=== PATIENT | male | born 1930 | race African-American/Black ===

== ENCOUNTER 2017-12-14 14:41 | Inpatient (IN) | payer MEDICARE, OTHER ==
--- NOTE | 2017-12-14 15:45 | RADIOLOGY REPORT (SQ) ---
EXAM DESCRIPTION: HIP RIGHT AP/LATERAL COMPLETED DATE/TIME: 12/14/2017 3:29 pm REASON FOR STUDY: fall COMPARISON: None. NUMBER OF VIEWS: 3 images including AP pelvis and frog lateral right hip. LIMITATIONS: None. FINDINGS: Osteopenic. There is a right femoral neck fracture, subcapital -mid. Mild impaction and anterior superior slight displacement. Remaining osseous pelvis without evidence of fracture. OTHER: No other significant finding. IMPRESSION: Right femoral neck fracture with slight displacement. TECHNICAL DOCUMENTATION: JOB ID: [id number]
[2017-12-14] MEDS ORDERED: ACETAMINOPHEN 325 MG TABLET PO ONE (15:47)
--- NOTE | 2017-12-14 16:28 | RADIOLOGY REPORT (SQ) ---
EXAM DESCRIPTION: CHEST SINGLE VIEW COMPLETED DATE/TIME: 12/14/2017 4:20 pm REASON FOR STUDY: pre op COMPARISON: None. EXAM PARAMETERS: NUMBER OF VIEWS: One view. TECHNIQUE: Single frontal radiographic view of the chest acquired. RADIATION DOSE: NA LIMITATIONS: Poor inspiration. FINDINGS: LUNGS AND PLEURA: No opacities, masses or pneumothorax. No pleural effusion. MEDIASTINUM AND HILAR STRUCTURES: No masses. Contour normal. HEART AND VASCULAR STRUCTURES: Heart normal in size. Normal vasculature. BONES: No acute findings. HARDWARE: None in the chest. OTHER: No other significant finding. IMPRESSION: NO ACUTE RADIOGRAPHIC FINDING IN THE CHEST. TECHNICAL DOCUMENTATION: JOB ID: [id number] [employer]- All Rights Reserved
[2017-12-14 16:45] LABS: ABSOLUTE EOSINOPHILS # (AUTO) 0.1 10^3/uL (0.0-0.6); ABSOLUTE LYMPHOCYTES (AUTO) 1.2 10^3/uL (0.5-4.7); ABSOLUTE MONOCYTES (AUTO) 0.6 10^3/uL (0.1-1.4); ABSOLUTE NEUT (AUTO) 7.3 10^3/uL (1.7-8.2); BASOPHILS % (AUTO) 0.3 % (0-2); EOSINOPHILS % (AUTO) 1.3 % (0-6); HEMATOCRIT 35.4 % (37.9-51.0); LYMPHOCYTES % (AUTO) 13.3 % (13-45); MEAN CORPUSCULAR HEMOGLOBIN 31.7 pg (27.0-33.4); MEAN CORPUSCULAR HGB CONC 33.8 g/dL (32.0-36.0); MEAN CORPUSCULAR VOLUME 94 fl (80-97); MONOCYTES % (AUTO) 6.2 % (3-13); PLATELET COUNT 193 10^3/uL (150-450); RED BLOOD COUNT 3.78 10^6/uL (4.35-5.55); RED CELL DISTRIBUTION WIDTH 14.9 % (11.5-14.0); SEGMENTED NEUTROPHILS % (AUTO) 78.9 % (42-78); TOTAL CELLS COUNTED % (AUTO) 100 %; WHITE BLOOD COUNT 9.3 10^3/uL (4.0-10.5)
[2017-12-14] MEDS ORDERED: FENTANYL CITRATE INJ/PF 100 MCG/2 ML AMPUL IV ONE (16:45)
--- NOTE | 2017-12-14 16:46 | ER Document Report ---
ED Hip Pain/Injury - General Chief Complaint: Hip Pain Stated Complaint: FALL/LEG PAIN Time Seen by Provider: 12/14/17 15:53 Mode of Arrival: Wheelchair Information source: Patient Notes: Patient is an 87-year-old male who presents to the ER today after a fall at the grocery store for right hip pain. Patient states that his right hip took "most of the blunt of the fall." Patient states that he cannot bear weight on the right leg at this time. He also has a skin tear to his right elbow. He denies hitting her head or loss of consciousness. TRAVEL OUTSIDE OF THE [place] IN LAST 30 DAYS: No - Related Data Allergies/Adverse Reactions: No Known Allergies Allergy (Unverified 12/14/17 14:44) Past Medical History - General Information source: Patient - Social History Smoking Status: Never Smoker Family History: Reviewed & Not Pertinent Patient has suicidal ideation: No Patient has homicidal ideation: No - Past Medical History Cardiac Medical History: Reports: Hx Hypercholesterolemia, Hx Hypertension Endocrine Medical History: Reports: Hx Diabetes Mellitus Type 2 Renal/ Medical History: Denies: Hx Peritoneal Dialysis Past Surgical History: Reports: Hx Bowel Surgery - colostomy Review of Systems - Review of Systems Constitutional: No symptoms reported EENT: No symptoms reported Cardiovascular: No symptoms reported Respiratory: No symptoms reported Gastrointestinal: No symptoms reported Genitourinary: No symptoms reported Male Genitourinary: No symptoms reported Musculoskeletal: See HPI Skin: See HPI Hematologic/Lymphatic: No symptoms reported Neurological/Psychological: No symptoms reported Physical Exam - Vital signs Vitals: Temp Pulse BP Pulse Ox 97.9 F 69 177/68 H 96 12/14/17 14:49 12/14/17 14:49 12/14/17 14:49 12/14/17 14:49 - Notes Notes: PHYSICAL EXAMINATION: GENERAL: Well-appearing and in no acute distress. HEAD: Atraumatic, normocephalic. EYES: Pupils equal round and reactive to light, extraocular movements intact, sclera anicteric, conjunctiva are normal. NECK: Normal range of motion, supple without lymphadenopathy LUNGS: CTAB and equal. No wheezes rales or rhonchi. HEART: Regular rate and rhythm without murmurs ABDOMEN: Soft, no tenderness. No guarding, no rebound BACK: no vertebral tenderness, normal ROM GI/: no CVA tenderness EXTREMITIES: right hip tenderness, right leg externally rotated and shortened, no pitting edema. No cyanosis. NEUROLOGICAL: Cranial nerves grossly intact. Normal sensory/motor exams. PSYCH: Normal mood, normal affect. SKIN: Warm, Dry, normal turgor, no rashes or lesions noted Course - Re-evaluation Re-evalutation: 12/14/17 18:47 Patient has fracture, minimally displaced at the right femoral neck. Dr. Wang , orthopedic surgeon agrees to see him if admitted by his primary care provider so that Dr. Mishra, his primary can manage his medical issues. Dr. Mishra agrees. Patient admitted at this time. Fentanyl for pain is relieved patient' s pain. - Vital Signs Vital signs: Temp Pulse Resp BP Pulse Ox 97.9 F 69 177/68 H 96 12/14/17 14:49 12/14/17 14:49 12/14/17 14:49 12/14/17 14:49 - Laboratory Result Diagrams: 12/14/17 16:25 12/14/17 16:25 Laboratory results interpreted by me: 12/14/17 12/14/17 16:25 16:25 RBC 3.78 L Hgb 12.0 L Hct 35.4 L RDW 14.9 H Seg Neutrophils % 78.9 H Glucose 163 H Discharge - Discharge Clinical Impression: Closed right hip fracture Qualifiers: Encounter type: initial encounter Qualified Code(s): S72.001A - Fracture of unspecified part of neck of right femur, initial encounter for closed fracture Condition: Stable Disposition: ADMITTED INPATIENT Admitting Provider: Tad Unit Admitted: Medical Floor
[2017-12-14 17:09] LABS: ALANINE AMINOTRANSFERASE 24 U/L (21-72); ALBUMIN 4.3 g/dL (3.5-5.0); ALKALINE PHOSPHATASE 48 U/L (38-126); ANION GAP 11 (5-19); ASPARTATE AMINO TRANSFERASE 24 U/L (17-59); BILIRUBIN,DIRECT 0.4 mg/dL (0.0-0.4); BILIRUBIN,TOTAL 0.4 mg/dL (0.2-1.3); BLOOD UREA NITROGEN 16 mg/dL (7-20); CALCIUM 9.1 mg/dL (8.4-10.2); CARBON DIOXIDE 26 mmol/L (22-30); CHLORIDE 104 mmol/L (98-107); GLUCOSE 163 mg/dL (75-110); POTASSIUM 3.6 mmol/L (3.6-5.0); SODIUM 140.6 mmol/L (137-145); TOTAL PROTEIN 7.3 g/dL (6.3-8.2)
--- NOTE | 2017-12-14 18:23 | EKG REPORT ---
SEVERITY:- NORMAL ECG - SINUS RHYTHM : Confirmed by: Milton Martinez MD 14-Dec-2017 18:22:36
--- NOTE | 2017-12-14 19:53 | PDOC H&P ---
History of Present Illness Admission Date/PCP: 12/14/17 17:11 IRENE GUERRERO Patient complains of: Fall and right hip pain History of Present Illness: JENNIFER BAY is a 87 year old male known to my practice who presented to the ED subsequent to fall incident at local grocery store. Patient reported that he was returning a shopping cart and upon turning around lost his balance and fell to the floor with his right hip area bearing most of his impact. He subsequently developed hip joint region pain and difficulty with walking. He reported sustaining skin tear injury to his right elbow region. Patient denied any preceding chest pain, palpitation, headache, dizziness or vertigo. He denied any head injury or loss of consciousness. His morbidities include Diabetes mellitus type 2, Hypertension, Hyperlipidemia, persistent insomnia, intermittent positional vertigo, and osteoarthritis. Patient has long standing past history of colon cancer s/p colectomy and left sided diverting colostomy. Past Medical History Cardiac Medical History: Reports: Hyperlipidema, Hypertension Endocrine Medical History: Reports: Diabetes Mellitus Type 2 Social History Smoking Status: Never Smoker - Advance Directive Resuscitation Status: Full Code Family History Family History: Reviewed & Not Pertinent Parental Family History Reviewed: Yes Children Family History Reviewed: Yes Sibling(s) Family History Reviewed.: Yes Medication/Allergy Home Medications: Meclizine HCl [Antivert 25 mg Tablet] 25 mg PO Q8HP PRN 12/14/17 Metformin HCl [Glucophage] 500 mg PO DAILY 12/14/17 Nitroglycerin [Nitro-Dur 10 mg (0.4MG/Hr) Transdermal Patch] 1 patch TOP DAILY 12/14/17 Telmisartan [Micardis 40 mg Tablet] 40 mg PO DAILY 12/14/17 Zolpidem Tartrate [Ambien] 10 mg PO QHS 12/14/17 Allergies/Adverse Reactions: No Known Allergies Allergy (Unverified 12/14/17 14:44) Review of Systems Constitutional: ABSENT: chills, fever(s), headache(s), weight gain, weight loss Eyes: ABSENT: visual disturbances Ears: ABSENT: hearing changes Nose, Mouth, and Throat: ABSENT: as per HPI, headache(s), mouth pain, sore throat, vertigo, other Cardiovascular: ABSENT: chest pain, dyspnea on exertion, edema, orthropnea, palpitations Gastrointestinal: PRESENT: other - functioning colostomy. ABSENT: abdominal pain, constipation, diarrhea, hematemesis, hematochezia, nausea, vomiting Genitourinary: ABSENT: dysuria, hematuria Musculoskeletal: PRESENT: deformity - related to multiple joints involvement with arthritis, other - right hip joint pain Integumentary: PRESENT: wounds - right elbow region skin tear wound from recent fall injury. ABSENT: as per HPI, diaphoresis, erythema, lesions, pruritus, rash , other Neurological: ABSENT: abnormal gait, abnormal speech, confusion, dizziness, focal weakness, syncope Psychiatric: ABSENT: anxiety, depression, homidical ideation, suicidal ideation Hematologic/Lymphatic: ABSENT: easy bleeding, easy bruising, lymphadenopathy Allergic/Immunologic: ABSENT: seasonal rhinorrhea Physical Exam Vital Signs: Temp Pulse Resp BP Pulse Ox 97.9 F 69 177/68 H 96 12/14/17 14:49 12/14/17 14:49 12/14/17 14:49 12/14/17 14:49 General appearance: PRESENT: no acute distress, well-developed, well-nourished Head exam: PRESENT: atraumatic, normocephalic Eye exam: PRESENT: conjunctiva pink, EOMI, PERRLA. ABSENT: scleral icterus Ear exam: PRESENT: normal external ear exam Mouth exam: PRESENT: moist, tongue midline Neck exam: PRESENT: full ROM. ABSENT: carotid bruit, JVD, lymphadenopathy, thyromegaly Respiratory exam: PRESENT: clear to auscultation vishal Cardiovascular exam: PRESENT: RRR. ABSENT: diastolic murmur, rubs, systolic murmur Pulses: PRESENT: normal dorsalis pedis pul, +2 pedal pulses bilateral Vascular exam: PRESENT: normal capillary refill. ABSENT: pallor GI/Abdominal exam: PRESENT: normal bowel sounds, soft. ABSENT: distended, guarding, mass, organolmegaly, rebound, tenderness Rectal exam: PRESENT: deferred Extremities exam: PRESENT: tenderness - right hip joint region with movement. ABSENT: pedal edema Musculoskeletal exam: PRESENT: deformity - related to multiple joints involvement with arthritis and externally rotated right hipo joint due to recent fall and fractured neck of right femur., tenderness - right hip region with movement Neurological exam: PRESENT: alert, awake, oriented to person, oriented to place , oriented to time, oriented to situation, CN II-XII grossly intact. ABSENT: motor sensory deficit Psychiatric exam: PRESENT: appropriate affect, normal mood. ABSENT: homicidal ideation, suicidal ideation Skin exam: PRESENT: dry, intact, skin tears - right elbow region, warm, other - left LQU region functioning colostomy. ABSENT: cyanosis, rash Results Laboratory Results: I reviewed his lab results on [employer] and form significant part of my medical decision making. Impressions: Hip/Pelvis X-Ray 12/14/17 14:44 IMPRESSION: Right femoral neck fracture with slight displacement. Chest X-Ray 12/14/17 15:54 IMPRESSION: NO ACUTE RADIOGRAPHIC FINDING IN THE CHEST. Assessment & Plan - Diagnosis (1) Fall in elderly patient Is this a current diagnosis for this admission?: Yes Plan: See admitting attending physician orders (2) Fracture of neck of right femur Qualifiers: Encounter type: initial encounter Fracture type: closed Qualified Code(s) : S72.001A - Fracture of unspecified part of neck of right femur, initial encounter for closed fracture Is this a current diagnosis for this admission?: Yes Plan: See admitting attending physician orders (3) Diabetes mellitus type 2 in nonobese Is this a current diagnosis for this admission?: Yes Plan: See admitting attending physician orders (4) HTN (hypertension) Qualifiers: Hypertension type: essential hypertension Qualified Code(s): I10 - Essential (primary) hypertension Is this a current diagnosis for this admission?: Yes Plan: See admitting attending physician orders (5) HLD (hyperlipidemia) Qualifiers: Hyperlipidemia type: pure hypercholesterolemia Qualified Code(s): E78.00 - Pure hypercholesterolemia, unspecified; E78.0 - Pure hypercholesterolemia Is this a current diagnosis for this admission?: Yes Plan: See admitting attending physician orders (6) Osteoarthritis involving multiple joints on both sides of body Is this a current diagnosis for this admission?: Yes Plan: See admitting attending physician orders (7) Colostomy care Is this a current diagnosis for this admission?: Yes Plan: See admitting attending physician orders - Time Time Spent: 50 to 70 Minutes Medications reviewed and adjusted accordingly: Yes Anticipated discharge: SNF - for short term rehabilitation Within: Other - Inpatient Certification Based on my medical assessment, after consideration of the patient's comorbidities, presenting symptoms, or acuity I expect that the services needed warrant INPATIENT care.: Yes I certify that my determination is in accordance with my understanding of Medicare's requirements for reasonable and necessary INPATIENT services [42 CFR 412.3e].: Yes Medical Necessity: Need Close Monitoring Due to Risk of Patient Decompensation, Need For IV Fluids, Need for Pain Control, Need for Surgery, Risk of Complication if Not Cared For in Hospital Post Hospital Care: D/C or Transfer Summary - Plan Summary Plan Summary: See admitting attending physician orders
[2017-12-14] MEDS ORDERED: DEXTROSE 50%-WATER 25 GM/50 ML DISP.SYRIN IV PRN ×2 (19:55)
[2017-12-14] MEDS ORDERED: DEXTROSE 40% GEL 15 GM TUBE PO PRN ×2 (19:55)
[2017-12-14] MEDS ORDERED: GLUCAGON,HUMAN RECOMB 1 MG INJ SUBCUT PRN (19:55)
[2017-12-14] MEDS ORDERED: NORMAL SALINE 1000 ML 1,000 ML IV PRN (19:56)
[2017-12-14] MEDS ORDERED: INSULIN LISPRO 100 UNIT/ML 3 ML VIAL SUBCUT PRN (19:56)
[2017-12-14] MEDS ORDERED: MORPHINE SULFATE 10 MG/ML INJ IV PRN (20:02)
[2017-12-14 21:11] LABS: CREATINE KINASE MB 2.65 ng/mL (<4.55)
[2017-12-14 21:18] LABS: TROPONIN I < 0.012 ng/mL
[2017-12-14] MEDS: HYDROMORPHONE HCL INJ/PF 2 MG/ML AMPULE IV PRN (21:28)
[2017-12-15] MEDS: LANSOPRAZOLE 30 MG TAB.RAP.DR PO SCH (05:01)
[2017-12-15 06:08] LABS: ABSOLUTE EOSINOPHILS # (AUTO) 0.2 10^3/uL (0.0-0.6); ABSOLUTE LYMPHOCYTES (AUTO) 0.8 10^3/uL (0.5-4.7); ABSOLUTE MONOCYTES (AUTO) 0.5 10^3/uL (0.1-1.4); ABSOLUTE NEUT (AUTO) 6.9 10^3/uL (1.7-8.2); BASOPHILS % (AUTO) 0.3 % (0-2); EOSINOPHILS % (AUTO) 2.6 % (0-6); HEMATOCRIT 31.8 % (37.9-51.0); HEMOGLOBIN 10.8 g/dL (13.5-17.0); LYMPHOCYTES % (AUTO) 9.8 % (13-45); MEAN CORPUSCULAR HEMOGLOBIN 31.8 pg (27.0-33.4); MEAN CORPUSCULAR HGB CONC 34.1 g/dL (32.0-36.0); MEAN CORPUSCULAR VOLUME 93 fl (80-97); MONOCYTES % (AUTO) 5.6 % (3-13); PLATELET COUNT 151 10^3/uL (150-450); RED BLOOD COUNT 3.41 10^6/uL (4.35-5.55); SEGMENTED NEUTROPHILS % (AUTO) 81.7 % (42-78); TOTAL CELLS COUNTED % (AUTO) 100 %; WHITE BLOOD COUNT 8.4 10^3/uL (4.0-10.5)
[2017-12-15 06:27] LABS: INTERNATIONAL RATION (INR) 0.97; PROTHROMBIN TIME 13.6 SEC (11.4-15.4)
[2017-12-15 06:28] LABS: ANION GAP 12 (5-19); BLOOD UREA NITROGEN 15 mg/dL (7-20); CALCIUM 8.6 mg/dL (8.4-10.2); CARBON DIOXIDE 22 mmol/L (22-30); CHLORIDE 108 mmol/L (98-107); GLUCOSE 109 mg/dL (75-110); PARTIAL THROMBOPLASTIN TIME 35.1 SEC (23.5-35.8); POTASSIUM 3.8 mmol/L (3.6-5.0); SODIUM 141.8 mmol/L (137-145)
[2017-12-15] MEDS: HYDROMORPHONE HCL INJ/PF 2 MG/ML AMPULE IV PRN (06:46)
--- NOTE | 2017-12-15 07:13 | PDOC CONSULTATION ---
Consultation Consult Date: 12/15/17 Consult reason:: 87-year-old black male with a displaced right femoral neck fracture History of Present Illness Admission Date/PCP: 12/14/17 17:11 IRENE GUERRERO History of Present Illness: Patient is an 87-year-old black male with a noncontributory past medical history and who is a community ambulator. He fell in a grocery store yesterday and sustained a right hip injury. He is brought to the emergency room were displaced right femoral neck fracture is identified. The patient is admitted to his primary care physician and orthopedics is consulted for fracture management. Past Medical History Cardiac Medical History: Reports: Hyperlipidema, Hypertension Endocrine Medical History: Reports: Diabetes Mellitus Type 2 Past Surgical History Past Surgical History: Reports: None Social History Information Source: Patient, [facility] Records Smoking Status: Never Smoker - Advance Directive Resuscitation Status: Full Code Family History Family History: Reviewed & Not Pertinent Parental Family History Reviewed: No Children Family History Reviewed: No Sibling(s) Family History Reviewed.: No Medication/Allergy Home Medications: Meclizine HCl [Antivert 25 mg Tablet] 25 mg PO Q8HP PRN 12/14/17 Metformin HCl [Glucophage] 500 mg PO DAILY 12/14/17 Nitroglycerin [Nitro-Dur 10 mg (0.4MG/Hr) Transdermal Patch] 1 patch TOP DAILY 12/14/17 Telmisartan [Micardis 40 mg Tablet] 40 mg PO DAILY 12/14/17 Zolpidem Tartrate [Ambien] 10 mg PO QHS 12/14/17 Allergies/Adverse Reactions: No Known Allergies Allergy (Unverified 12/14/17 14:44) Review of Systems All systems: as per H Physical Exam Vital Signs: Temp Pulse Resp BP Pulse Ox 37.1 C 78 16 151/80 H 95 12/14/17 23:26 12/14/17 23:26 12/14/17 23:26 12/14/17 23:26 12/14/17 23:26 Intake & Output 12/14/17 12/15/17 12/16/17 06:59 06:59 06:59 Intake Total 0 Output Total 650 Balance -650 Physical Exam: Elderly black male lying in a hospital bed who is alert and oriented. Patient appears considerably younger than his chronologic age. General appearance: PRESENT: no acute distress Head exam: PRESENT: normocephalic Respiratory exam: PRESENT: unlabored Cardiovascular exam: PRESENT: RRR Pulses: PRESENT: +1 pedal pulses bilateral Vascular exam: PRESENT: normal capillary refill GI/Abdominal exam: PRESENT: soft Rectal exam: PRESENT: deferred Extremities exam: PRESENT: other - Right lower extremity shortened and externally rotated. Passive range of motion is painful. Distal neurovascular examination is intact. Neurological exam: PRESENT: alert, awake, oriented to person, oriented to place , oriented to time, oriented to situation. ABSENT: motor sensory deficit Psychiatric exam: PRESENT: appropriate affect, normal mood. ABSENT: homicidal ideation, suicidal ideation Skin exam: PRESENT: dry, intact, warm. ABSENT: cyanosis, rash Results Laboratory Results: 12/15/17 05:13 12/15/17 05:13 12/15/17 12/15/17 05:13 05:13 WBC 8.4 RBC 3.41 L Hgb 10.8 L Hct 31.8 L MCV 93 MCH 31.8 MCHC 34.1 RDW 15.0 H Plt Count 151 Seg Neutrophils % 81.7 H Lymphocytes % 9.8 L Monocytes % 5.6 Eosinophils % 2.6 Basophils % 0.3 Absolute Neutrophils 6.9 Absolute Lymphocytes 0.8 Absolute Monocytes 0.5 Absolute Eosinophils 0.2 Absolute Basophils 0.0 Sodium 141.8 Potassium 3.8 Chloride 108 H Carbon Dioxide 22 Anion Gap 12 BUN 15 Creatinine 0.78 Est GFR ( Amer) > 60 Est GFR (Non-Af Amer) > 60 Glucose 109 Calcium 8.6 12/14/17 12/14/17 20:13 20:13 Creatine Kinase 217 H CK-MB (CK-2) 2.65 Troponin I < 0.012 Impressions: Hip/Pelvis X-Ray 12/14/17 14:44 IMPRESSION: Right femoral neck fracture with slight displacement. Chest X-Ray 12/14/17 15:54 IMPRESSION: NO ACUTE RADIOGRAPHIC FINDING IN THE CHEST. Status: Imported from PACS Assessment & Plan - Diagnosis (1) Fracture of neck of right femur Qualifiers: Encounter type: initial encounter Fracture type: closed Qualified Code(s) : S72.001A - Fracture of unspecified part of neck of right femur, initial encounter for closed fracture Is this a current diagnosis for this admission?: Yes Plan: 87-year-old black male with a displaced right femoral neck fracture. Tentative plan will be to proceed with a right proximal femoral hemiarthroplasty under choice anesthesia pending OR availability. - Time Time Spent: 50 to 70 Minutes Anticipated discharge: SNF Within: Other
[2017-12-15] MEDS ORDERED: TRANEXAMIC ACID INJ/PF 1,000 MG/10 ML SDV IV PRN (07:30)
[2017-12-15] MEDS ORDERED: VANCOMYCIN HCL 1,000 MG in DEXTROSE 5%-WATER 250 ML IV PRN (07:30)
[2017-12-15] MEDS ORDERED: LIDOCAINE 2% INJ-PF (20 MG/ML) 2 ML AMPUL ONE (08:12)
[2017-12-15] MEDS ORDERED: THROMBIN (BOVINE) 5000 UNIT EPITAXIS KIT ONE (09:06)
[2017-12-15] MEDS ORDERED: THROMBIN (BOVINE) TOPICAL 20000 UNIT VIAL ONE (09:06)
[2017-12-15] MEDS ORDERED: BUPIVACAINE INJ/PF LIPOSOME/PF 266 MG/20 ML SDV ONE ×2 (09:07→11:06)
[2017-12-15] MEDS: RINGERS SOLUTION,LACTATED 1,000 ML IV PRN ×2 (09:20→18:17)
[2017-12-15] MEDS ORDERED: FENTANYL CITRATE INJ/PF 100 MCG/2 ML AMPUL ONE (09:35)
[2017-12-15] MEDS ORDERED: MIDAZOLAM 2 MG/2 ML INJ ONE (09:35)
[2017-12-15] MEDS ORDERED: KETAMINE HCL INJ 500 MG/10 ML VIAL ONE (09:35)
[2017-12-15] MEDS ORDERED: ACETAMINOPHEN 100 ML IV ONE (09:36)
[2017-12-15] MEDS ORDERED: PROPOFOL INJ 200 MG/20 ML VIAL IV ONE (09:36)
[2017-12-15] MEDS ORDERED: BUPIVACAINE HCL/DEX-WATER/PF 15 MG/2 ML AMPULE ONE (09:44)
[2017-12-15] MEDS ORDERED: (PENDING PHARMACY ID) (Telmisartan [Micardis 40 Mg Tablet] 40 MG) PO SCH (10:00)
[2017-12-15] MEDS ORDERED: TRANEXAMIC ACID INJ/PF 1,000 MG/10 ML SDV IV ONE ×2 (11:27→15:00)
[2017-12-15] MEDS ORDERED: DIPHENHYDRAMINE HCL 50 MG/ML VIAL IV PRN (12:28)
[2017-12-15] MEDS ORDERED: PROMETHAZINE HCL INJ 25 MG/1 ML VIAL IV PRN (12:28)
[2017-12-15] MEDS ORDERED: FENTANYL CITRATE INJ/PF 100 MCG/2 ML AMPUL IV PRN ×3 (12:28)
[2017-12-15] MEDS ORDERED: MORPHINE SULFATE 10 MG/ML INJ IV PRN (12:28)
[2017-12-15] MEDS ORDERED: ONDANSETRON HCL INJ/PF 4 MG/2 ML SDV IV PRN (12:28)
--- NOTE | 2017-12-15 12:57 | Operative Report ---
Operative Report DATE OF SURGERY: 12/15/17 PREOPERATIVE DIAGNOSIS: Right femoral neck fracture OPERATION: Right proximal femoral hemiarthroplasty SURGEON: ZOHRA SINGH ANESTHESIA: Spinal TISSUE REMOVED OR ALTERED: Femoral head to pathology ESTIMATED BLOOD LOSS: 100 PROCEDURE: Implants used: Peter Accolade 2 stem size 7 -4 neck extension 50 mm unipolar head With the patient in a left lateral decubitus position the right lower extremity hindquarter prepped and draped in a sterile fashion. A curvilinear incision made over the greater trochanter a posterior approach the hip was taken. The femur was retracted anteriorly and underlying femoral neck and head are retrieved using a corkscrew. The femoral head was measured and noted to be 50 millimeters. Attention is now turned to the femur. Access is gained to the femoral canal using a box osteotome to the piriformis fossa. The femur is then prepared using a series of tapered broaches until a number 7 broach is seated. A trial reduction was now performed using a 50 head and -4 neck. Leg length was restored and there is excellent anterior posterior stability. A decision was made to proceed with this construct. All trial implants were removed. The final number 7 femoral stem is impacted into the canal. The -4 neck is impacted onto the trunnion. Final unipolar head 50 millimeters is impacted onto the neck. The hip was reduced. The wound is copiously irrigated with pulsed lavage. A subsequent closed in layers using Vicryl and grant. A sterile dressing is applied. The patient was returned to the recovery room in satisfactory condition.
[2017-12-15] MEDS: LOSARTAN POTASSIUM 50 MG TABLET PO SCH (13:41)
[2017-12-15] MEDS: NITROGLYCERIN 10 MG (0.4 MG/HR) PATCH.TD24 TOP SCH (13:41)
[2017-12-15] MEDS ORDERED: HYDROMORPHONE HCL INJ/PF 2 MG/ML AMPULE IV PRN (14:03)
--- NOTE | 2017-12-15 18:08 | PDOC PROGRESS REPORT ---
Subjective Progress Note for:: 12/15/17 Subjective:: Patient is s/p right total hip arthroplasty following fall with subsequent femoral neck fracture. he reported fairly controlled pain on current pain management regimen. No chest pain or difficulty with breathing. No nausea, vomiting, or abdominal pain. No fever or chills. Reason For Visit: FALL AT [employer] STORE FROM STANDING POSITION Physical Exam Vital Signs: Temp Pulse Resp BP Pulse Ox 98.5 F 76 12 147/69 H 100 12/15/17 16:27 12/15/17 16:27 12/15/17 16:27 12/15/17 16:27 12/15/17 16:27 Intake & Output 12/14/17 12/15/17 12/16/17 06:59 06:59 06:59 Intake Total 0 6481 Output Total 650 1980 Balance -650 4501 General appearance: PRESENT: no acute distress Head exam: PRESENT: atraumatic, normocephalic Eye exam: PRESENT: conjunctiva pink, EOMI, PERRLA. ABSENT: scleral icterus Mouth exam: PRESENT: moist Respiratory exam: PRESENT: clear to auscultation vishal Cardiovascular exam: PRESENT: RRR. ABSENT: diastolic murmur, rubs, systolic murmur Vascular exam: PRESENT: normal capillary refill. ABSENT: pallor GI/Abdominal exam: PRESENT: normal bowel sounds, soft. ABSENT: distended, guarding, mass, organolmegaly, rebound, tenderness Extremities exam: ABSENT: pedal edema Musculoskeletal exam: ABSENT: ambulatory Neurological exam: PRESENT: alert, awake, oriented to person, oriented to place , oriented to time, oriented to situation, CN II-XII grossly intact. ABSENT: motor sensory deficit Psychiatric exam: PRESENT: appropriate affect, normal mood. ABSENT: homicidal ideation, suicidal ideation Skin exam: PRESENT: dry, warm, other - right thigh surgical wound site dressing satisfactory.. ABSENT: cyanosis, rash Results Laboratory Results: 12/15/17 05:13 12/15/17 05:13 12/15/17 12/15/17 05:13 05:13 WBC 8.4 RBC 3.41 L Hgb 10.8 L Hct 31.8 L MCV 93 MCH 31.8 MCHC 34.1 RDW 15.0 H Plt Count 151 Seg Neutrophils % 81.7 H Lymphocytes % 9.8 L Monocytes % 5.6 Eosinophils % 2.6 Basophils % 0.3 Absolute Neutrophils 6.9 Absolute Lymphocytes 0.8 Absolute Monocytes 0.5 Absolute Eosinophils 0.2 Absolute Basophils 0.0 Sodium 141.8 Potassium 3.8 Chloride 108 H Carbon Dioxide 22 Anion Gap 12 BUN 15 Creatinine 0.78 Est GFR ( Amer) > 60 Est GFR (Non-Af Amer) > 60 Glucose 109 Calcium 8.6 12/14/17 12/14/17 20:13 20:13 Creatine Kinase 217 H CK-MB (CK-2) 2.65 Troponin I < 0.012 Impressions: Hip/Pelvis X-Ray 12/14/17 14:44 IMPRESSION: Right femoral neck fracture with slight displacement. Chest X-Ray 12/14/17 15:54 IMPRESSION: NO ACUTE RADIOGRAPHIC FINDING IN THE CHEST. 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 Is this a current diagnosis for this admission?: Yes (4) HTN (hypertension) Qualifiers: Hypertension type: essential hypertension Qualified Code(s): I10 - Essential (primary) hypertension Is this a current diagnosis for this admission?: Yes (5) HLD (hyperlipidemia) Qualifiers: Hyperlipidemia type: pure hypercholesterolemia Qualified Code(s): E78.00 - Pure hypercholesterolemia, unspecified; E78.0 - Pure hypercholesterolemia Is this a current diagnosis for this admission?: Yes (6) Osteoarthritis involving multiple joints on both sides of body Is this a current diagnosis for this admission?: Yes (7) Colostomy care Is this a current diagnosis for this admission?: Yes - Time Time Spent with patient: 25-34 minutes Medications reviewed and adjusted accordingly: Yes Anticipated discharge: SNF - [facility] short term rehabilitation. Within: within 48 hours - Inpatient Certification Based on my medical assessment, after consideration of the patient's comorbidities, presenting symptoms, or acuity I expect that the services needed warrant INPATIENT care.: Yes I certify that my determination is in accordance with my understanding of Medicare's requirements for reasonable and necessary INPATIENT services [42 CFR 412.3e].: Yes Medical Necessity: Need Close Monitoring Due to Risk of Patient Decompensation, Need For IV Fluids, Need for Surgery, Risk of Complication if Not Cared For in Hospital Post Hospital Care: D/C Topology Professor Documentation - Plan Summary Plan Summary: Continue current medication management. I had extensive discussion with patient regarding need for rehabilitation. Obtain CBC and BMP in AM.
[2017-12-15] MEDS: OXYCODONE HCL IR 5 MG TABLET PO PRN (18:16)
[2017-12-16] MEDS ORDERED: VANCOMYCIN HCL 1,000 MG in DEXTROSE 5%-WATER 250 ML IV ONE ×2
[2017-12-16] MEDS ORDERED: VANCOMYCIN HCL INJ 1000 MG VIAL ONE (00:59)
[2017-12-16] MEDS: LANSOPRAZOLE 30 MG TAB.RAP.DR PO SCH (05:54)
--- NOTE | 2017-12-16 06:36 | PDOC PROGRESS REPORT ---
Subjective Progress Note for:: 12/16/17 Reason For Visit: F[facility] AT [facility] FROM STANDING POSITION 87-year-old black male postop day 1 right hemiarthroplasty for femoral neck fracture. Physical Exam Vital Signs: Temp Pulse Resp BP Pulse Ox 38.0 C 89 16 142/67 H 95 12/15/17 23:21 12/15/17 23:21 12/15/17 23:21 12/15/17 23:21 12/15/17 23:21 Intake & Output 12/14/17 12/15/17 12/16/17 06:59 06:59 06:59 Intake Total 0 6801 Output Total 650 2330 Balance -650 4471 General appearance: PRESENT: no acute distress Head exam: PRESENT: normocephalic Respiratory exam: PRESENT: unlabored Cardiovascular exam: PRESENT: RRR Pulses: PRESENT: +1 pedal pulses bilateral Vascular exam: PRESENT: normal capillary refill GI/Abdominal exam: PRESENT: soft Rectal exam: PRESENT: deferred Gentrourinary exam: PRESENT: other - Incontinent Extremities exam: PRESENT: other - Left hip dressing clean dry and intact. Leg lengths are equal. Distal neurovascular examination is intact. Neurological exam: PRESENT: alert, awake Psychiatric exam: PRESENT: agitated Skin exam: PRESENT: dry, intact, warm. ABSENT: cyanosis, rash Results Laboratory Results: 12/15/17 05:13 12/15/17 05:13 12/14/17 12/14/17 20:13 20:13 Creatine Kinase 217 H CK-MB (CK-2) 2.65 Troponin I < 0.012 Impressions: Hip/Pelvis X-Ray 12/14/17 14:44 IMPRESSION: Right femoral neck fracture with slight displacement. Chest X-Ray 12/14/17 15:54 IMPRESSION: NO ACUTE RADIOGRAPHIC FINDING IN THE CHEST. Status: Imported from PACS Assessment & Plan - Diagnosis (1) Fracture of neck of right femur Qualifiers: Encounter type: initial encounter Fracture type: closed Qualified Code(s) : S72.001A - Fracture of unspecified part of neck of right femur, initial encounter for closed fracture Is this a current diagnosis for this admission?: Yes Plan: Postop day 1 right hemiarthroplasty. No physical therapy yesterday. Postoperative x-ray was missed. Went to obtain AP the pelvis today. We will follow postoperative labs and mobilization with physical therapy. Anticipate the need for [facility] facility placement. - Time Time Spent with patient: Less than 15 minutes Anticipated discharge: SNF Within: Other
[2017-12-16 07:20] LABS: ABSOLUTE EOSINOPHILS # (AUTO) 0.1 10^3/uL (0.0-0.6); ABSOLUTE LYMPHOCYTES (AUTO) 1.1 10^3/uL (0.5-4.7); ABSOLUTE MONOCYTES (AUTO) 0.6 10^3/uL (0.1-1.4); ABSOLUTE NEUT (AUTO) 7.5 10^3/uL (1.7-8.2); BASOPHILS % (AUTO) 0.2 % (0-2); EOSINOPHILS % (AUTO) 0.6 % (0-6); HEMATOCRIT 31.7 % (37.9-51.0); HEMOGLOBIN 10.9 g/dL (13.5-17.0); MEAN CORPUSCULAR HGB CONC 34.3 g/dL (32.0-36.0); MEAN CORPUSCULAR VOLUME 93 fl (80-97); MONOCYTES % (AUTO) 6.8 % (3-13); PLATELET COUNT 150 10^3/uL (150-450); RED CELL DISTRIBUTION WIDTH 14.5 % (11.5-14.0); SEGMENTED NEUTROPHILS % (AUTO) 80.4 % (42-78); TOTAL CELLS COUNTED % (AUTO) 100 %; WHITE BLOOD COUNT 9.4 10^3/uL (4.0-10.5)
[2017-12-16 07:49] LABS: ANION GAP 10 (5-19); BLOOD UREA NITROGEN 11 mg/dL (7-20); CALCIUM 8.7 mg/dL (8.4-10.2); CARBON DIOXIDE 26 mmol/L (22-30); CHLORIDE 103 mmol/L (98-107); GLUCOSE 159 mg/dL (75-110); SODIUM 139.4 mmol/L (137-145)
[2017-12-16] MEDS: OXYCODONE HCL IR 5 MG TABLET PO PRN (08:25)
[2017-12-16] MEDS: LOSARTAN POTASSIUM 50 MG TABLET PO SCH (09:53)
[2017-12-16] MEDS: NITROGLYCERIN 10 MG (0.4 MG/HR) PATCH.TD24 TOP SCH (09:53)
[2017-12-16] MEDS: METFORMIN HCL 500 MG TABLET PO SCH (09:53)
--- NOTE | 2017-12-16 10:39 | RADIOLOGY REPORT (SQ) ---
EXAM DESCRIPTION: PELVIS AP COMPLETED DATE/TIME: 12/16/2017 10:27 am REASON FOR STUDY: POST OP EVAL COMPARISON: None. NUMBER OF VIEWS: One view TECHNIQUE: Digital radiographic images of the pelvis post-procedure LIMITATIONS: None. FINDINGS: BONES: No worrisome or unexpected findings post-procedure. DEVICE: Right femoral head prosthesis. No bone cement. SOFT TISSUES: No worrisome findings. Expected postoperative soft tissue changes. Left lower quadrant ostomy. Surgical clips in the pelvis midline. Old radiopaque sutures post right inguinal hernia re pair IMPRESSION: SATISFACTORY POSTOPERATIVE PELVIS. TECHNICAL DOCUMENTATION: JOB ID: [id number] [employer]- All Rights Reserved
[2017-12-16] MEDS: RIVAROXABAN 10 MG TABLET PO SCH (16:09)
[2017-12-16] MEDS: HYDROCODONE/ACETAMINOPHEN 5-325 MG TABLET PO PRN (16:09)
--- NOTE | 2017-12-16 16:11 | PDOC PROGRESS REPORT ---
Subjective Progress Note for:: 12/16/17 Subjective:: Patient participated in bedside PT session today. Pain is adequately controlled as long as he is not moving. He denied any chest pain of difficulty with breathing. No fever or chills. No nausea, vomiting, or abdominal pain. Reason For Visit: FALL AT [facility] FROM STANDING POSITION Physical Exam Vital Signs: Temp Pulse Resp BP Pulse Ox 98.4 F 83 16 139/62 H 95 12/16/17 12:05 12/16/17 12:05 12/16/17 12:05 12/16/17 12:05 12/16/17 12:05 Intake & Output 12/15/17 12/16/17 12/17/17 06:59 06:59 06:59 Intake Total 0 6801 450 Output Total 650 2330 Balance -650 4471 450 Physical Exam: General appearance: PRESENT: no acute distress Head exam: PRESENT: atraumatic, normocephalic Eye exam: PRESENT: conjunctiva pink, EOMI, PERRLA. ABSENT: scleral icterus Mouth exam: PRESENT: moist Respiratory exam: PRESENT: clear to auscultation vishal Cardiovascular exam: PRESENT: RRR. ABSENT: diastolic murmur, rubs, systolic murmur Vascular exam: PRESENT: normal capillary refill. ABSENT: pallor GI/Abdominal exam: PRESENT: normal bowel sounds, soft. Colostomy site satisfactory. ABSENT: distended, guarding, mass, organomegaly, rebound, tenderness Extremities exam: ABSENT: pedal edema Musculoskeletal exam: ABSENT: ambulatory Neurological exam: PRESENT: alert, awake, oriented to person, oriented to place , oriented to time, oriented to situation, CN II-XII grossly intact. ABSENT: motor sensory deficit Psychiatric exam: PRESENT: appropriate affect, normal mood. ABSENT: homicidal ideation, suicidal ideation Skin exam: PRESENT: dry, warm, other - right thigh surgical wound site dressing satisfactory. ABSENT: cyanosis, rash Results Laboratory Results: 12/16/17 06:44 12/16/17 06:44 12/16/17 12/16/17 06:44 06:44 WBC 9.4 RBC 3.40 L Hgb 10.9 L Hct 31.7 L MCV 93 MCH 32.0 MCHC 34.3 RDW 14.5 H Plt Count 150 Seg Neutrophils % 80.4 H Lymphocytes % 12.0 L Monocytes % 6.8 Eosinophils % 0.6 Basophils % 0.2 Absolute Neutrophils 7.5 Absolute Lymphocytes 1.1 Absolute Monocytes 0.6 Absolute Eosinophils 0.1 Absolute Basophils 0.0 Sodium 139.4 Potassium 4.0 Chloride 103 Carbon Dioxide 26 Anion Gap 10 BUN 11 Creatinine 0.78 Est GFR ( Amer) > 60 Est GFR (Non-Af Amer) > 60 Glucose 159 H Calcium 8.7 12/14/17 12/14/17 20:13 20:13 Creatine Kinase 217 H CK-MB (CK-2) 2.65 Troponin I < 0.012 Impressions: Hip/Pelvis X-Ray 12/14/17 14:44 IMPRESSION: Right femoral neck fracture with slight displacement. Chest X-Ray 12/14/17 15:54 IMPRESSION: NO ACUTE RADIOGRAPHIC FINDING IN THE CHEST. Pelvis X-Ray 12/16/17 00:00 IMPRESSION: SATISFACTORY POSTOPERATIVE PELVIS. 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 Is this a current diagnosis for this admission?: Yes (4) HTN (hypertension) Qualifiers: Hypertension type: essential hypertension Qualified Code(s): I10 - Essential (primary) hypertension Is this a current diagnosis for this admission?: Yes (5) HLD (hyperlipidemia) Qualifiers: Hyperlipidemia type: pure hypercholesterolemia Qualified Code(s): E78.00 - Pure hypercholesterolemia, unspecified; E78.0 - Pure hypercholesterolemia Is this a current diagnosis for this admission?: Yes (6) Osteoarthritis involving multiple joints on both sides of body Is this a current diagnosis for this admission?: Yes (7) Colostomy care Is this a current diagnosis for this admission?: Yes - Time Time Spent with patient: 25-34 minutes Medications reviewed and adjusted accordingly: Yes Anticipated discharge: SNF - for STR. - Inpatient Certification Based on my medical assessment, after consideration of the patient's comorbidities, presenting symptoms, or acuity I expect that the services needed warrant INPATIENT care.: Yes I certify that my determination is in accordance with my understanding of Medicare's requirements for reasonable and necessary INPATIENT services [42 CFR 412.3e].: Yes Medical Necessity: Need Close Monitoring Due to Risk of Patient Decompensation, Need For IV Fluids, Risk of Complication if Not Cared For in Hospital Post Hospital Care: D/C or Transfer Summary - Plan Summary Plan Summary: Start on Xarelto for DVT prophylaxis following hip surgery x 35 days. Maintain on other current medication management.
[2017-12-17] MEDS: LANSOPRAZOLE 30 MG TAB.RAP.DR PO SCH (06:31)
[2017-12-17] MEDS: NITROGLYCERIN 10 MG (0.4 MG/HR) PATCH.TD24 TOP SCH (09:41)
[2017-12-17] MEDS: METFORMIN HCL 500 MG TABLET PO SCH (09:41)
[2017-12-17] MEDS: LOSARTAN POTASSIUM 50 MG TABLET PO SCH (09:41)
[2017-12-17] MEDS: RIVAROXABAN 10 MG TABLET PO SCH (18:19)
--- NOTE | 2017-12-17 20:33 | PDOC PROGRESS REPORT ---
Subjective Progress Note for:: 12/17/17 Subjective:: Patient laying in bed. States pain adequately controlled. No issues overnight Reason For Visit: F[facility] AT [facility] FROM STANDING POS[facility] Physical Exam Vital Signs: Temp Pulse Resp BP Pulse Ox 37.1 C 77 18 109/47 L 98 12/17/17 16:00 12/17/17 16:00 12/17/17 16:00 12/17/17 16:00 12/17/17 16:00 Intake & Output 12/16/17 12/17/17 12/18/17 06:59 06:59 06:59 Intake Total 6801 1290 1080 Output Total 2330 200 Balance 4471 1090 1080 Adult Front & Back Image: 1 - Dressing is dry clean and intact. Limb lengths are grossly equal. Is good EHL and FHL with good sensation to light touch and good capillary refill. Results Laboratory Results: 12/16/17 06:44 12/16/17 06:44 12/14/17 12/14/17 20:13 20:13 Creatine Kinase 217 H CK-MB (CK-2) 2.65 Troponin I < 0.012 Impressions: Hip/Pelvis X-Ray 12/14/17 14:44 IMPRESSION: Right femoral neck fracture with slight displacement. Chest X-Ray 12/14/17 15:54 IMPRESSION: NO ACUTE RADIOGRAPHIC FINDING IN THE CHEST. Pelvis X-Ray 12/16/17 00:00 IMPRESSION: SATISFACTORY POSTOPERATIVE PELVIS. Assessment & Plan - Plan Summary Plan Summary: Patient is 87-year-old gentleman with right hip hemiarthroplasty postop day 2. Continue physical therapy Continue pain control Continue DVT prophylaxis Awaiting [facility] facility placement
--- NOTE | 2017-12-17 20:45 | PDOC PROGRESS REPORT ---
Subjective Progress Note for:: 12/17/17 Subjective:: Patient seen by the bedside awaiting placement in the longterm is sustained fracture of the right hip joint Reason For Visit: FALL AT [facility] FROM STANDING POSITION Physical Exam Vital Signs: Temp Pulse Resp BP Pulse Ox 98.7 F 77 18 109/47 L 98 12/17/17 16:00 12/17/17 16:00 12/17/17 16:00 12/17/17 16:00 12/17/17 16:00 Intake & Output 12/16/17 12/17/17 12/18/17 06:59 06:59 06:59 Intake Total 6801 1290 1080 Output Total 2330 200 Balance 4471 1090 1080 General appearance: PRESENT: no acute distress, well-developed, well-nourished Head exam: PRESENT: atraumatic, normocephalic Eye exam: PRESENT: conjunctiva pink, EOMI, PERRLA Respiratory exam: PRESENT: clear to auscultation vishal Cardiovascular exam: PRESENT: RRR, +S1, +S2 Vascular exam: PRESENT: normal capillary refill GI/Abdominal exam: PRESENT: normal bowel sounds, soft Rectal exam: PRESENT: deferred Neurological exam: PRESENT: alert Psychiatric exam: PRESENT: appropriate affect, normal mood Skin exam: PRESENT: dry, intact, warm. ABSENT: cyanosis, rash Results Laboratory Results: 12/16/17 06:44 12/16/17 06:44 12/14/17 12/14/17 20:13 20:13 Creatine Kinase 217 H CK-MB (CK-2) 2.65 Troponin I < 0.012 Impressions: Hip/Pelvis X-Ray 12/14/17 14:44 IMPRESSION: Right femoral neck fracture with slight displacement. Chest X-Ray 12/14/17 15:54 IMPRESSION: NO ACUTE RADIOGRAPHIC FINDING IN THE CHEST. Pelvis X-Ray 12/16/17 00:00 IMPRESSION: SATISFACTORY POSTOPERATIVE PELVIS. Assessment & Plan - Diagnosis (1) Closed right hip fracture Qualifiers: Encounter type: initial encounter Qualified Code(s): S72.001A - Fracture of unspecified part of neck of right femur, initial encounter for closed fracture Is this a current diagnosis for this admission?: Yes (2) Fracture of neck of right femur Qualifiers: Encounter type: initial encounter Fracture type: closed Qualified Code(s) : S72.001A - Fracture of unspecified part of neck of right femur, initial encounter for closed fracture Is this a current diagnosis for this admission?: Yes (3) HTN (hypertension) Qualifiers: Hypertension type: essential hypertension Qualified Code(s): I10 - Essential (primary) hypertension Is this a current diagnosis for this admission?: Yes (4) HLD (hyperlipidemia) Qualifiers: Hyperlipidemia type: pure hypercholesterolemia Qualified Code(s): E78.00 - Pure hypercholesterolemia, unspecified; E78.0 - Pure hypercholesterolemia Is this a current diagnosis for this admission?: Yes (5) Osteoarthritis involving multiple joints on both sides of body Is this a current diagnosis for this admission?: Yes (6) Diabetes mellitus type 2 in nonobese Is this a current diagnosis for this admission?: Yes (7) Colostomy care Is this a current diagnosis for this admission?: Yes
[2017-12-18] MEDS: HYDROCODONE/ACETAMINOPHEN 5-325 MG TABLET PO PRN (05:58)
[2017-12-18] MEDS: LANSOPRAZOLE 30 MG TAB.RAP.DR PO SCH (05:58)
[2017-12-18] MEDS: METFORMIN HCL 500 MG TABLET PO SCH (09:01)
[2017-12-18] MEDS: LOSARTAN POTASSIUM 50 MG TABLET PO SCH (09:01)
[2017-12-18] MEDS: NITROGLYCERIN 10 MG (0.4 MG/HR) PATCH.TD24 TOP SCH (09:01)
--- NOTE | 2017-12-18 14:26 | PDOC PROGRESS REPORT ---
Subjective Progress Note for:: 12/18/17 Subjective:: Patient is seen by the bedside awaiting placement for rehab Reason For Visit: FALL AT [facility] FROM STANDING POSITION Physical Exam Vital Signs: Temp Pulse Resp BP Pulse Ox 99.4 F 78 18 132/59 H 98 12/18/17 12:41 12/18/17 12:41 12/18/17 12:41 12/18/17 12:41 12/18/17 12:41 Intake & Output 12/17/17 12/18/17 12/19/17 06:59 06:59 06:59 Intake Total 1290 1430 0 Output Total 200 Balance 1090 1430 0 Weight 73.6 kg General appearance: PRESENT: no acute distress Eye exam: PRESENT: PERRLA Respiratory exam: PRESENT: clear to auscultation vishal Cardiovascular exam: PRESENT: +S1, +S2 GI/Abdominal exam: PRESENT: soft Neurological exam: PRESENT: alert Results Laboratory Results: 12/16/17 06:44 12/16/17 06:44 12/14/17 12/14/17 20:13 20:13 Creatine Kinase 217 H CK-MB (CK-2) 2.65 Troponin I < 0.012 Impressions: Hip/Pelvis X-Ray 12/14/17 14:44 IMPRESSION: Right femoral neck fracture with slight displacement. Chest X-Ray 12/14/17 15:54 IMPRESSION: NO ACUTE RADIOGRAPHIC FINDING IN THE CHEST. Pelvis X-Ray 12/16/17 00:00 IMPRESSION: SATISFACTORY POSTOPERATIVE PELVIS. Assessment & Plan - Diagnosis (1) Closed right hip fracture Qualifiers: Encounter type: initial encounter Qualified Code(s): S72.001A - Fracture of unspecified part of neck of right femur, initial encounter for closed fracture Is this a current diagnosis for this admission?: Yes (2) Fracture of neck of right femur Qualifiers: Encounter type: initial encounter Fracture type: closed Qualified Code(s) : S72.001A - Fracture of unspecified part of neck of right femur, initial encounter for closed fracture Is this a current diagnosis for this admission?: Yes (3) HTN (hypertension) Qualifiers: Hypertension type: essential hypertension Qualified Code(s): I10 - Essential (primary) hypertension Is this a current diagnosis for this admission?: Yes (4) HLD (hyperlipidemia) Qualifiers: Hyperlipidemia type: pure hypercholesterolemia Qualified Code(s): E78.00 - Pure hypercholesterolemia, unspecified; E78.0 - Pure hypercholesterolemia Is this a current diagnosis for this admission?: Yes (5) Osteoarthritis involving multiple joints on both sides of body Is this a current diagnosis for this admission?: Yes (6) Diabetes mellitus type 2 in nonobese Is this a current diagnosis for this admission?: Yes (7) Colostomy care Is this a current diagnosis for this admission?: Yes - Plan Summary Plan Summary: Continue treatment
[2017-12-18] MEDS: RIVAROXABAN 10 MG TABLET PO SCH (18:55)
[2017-12-19] MEDS: LANSOPRAZOLE 30 MG TAB.RAP.DR PO SCH (05:32)
--- NOTE | 2017-12-19 06:32 | PDOC PROGRESS REPORT ---
Subjective Progress Note for:: 12/19/17 Reason For Visit: FALL AT [facility] FROM STANDING POSITION 87-year-old black male postop day 4 right proximal femoral hemiarthroplasty for femoral neck fracture. Patient did well overnight has no complaints this morning. Physical Exam Vital Signs: Temp Pulse Resp BP Pulse Ox 37.1 C 76 16 136/55 H 100 12/19/17 03:35 12/18/17 23:58 12/18/17 23:58 12/18/17 23:58 12/18/17 23:58 Intake & Output 12/17/17 12/18/17 12/19/17 06:59 06:59 06:59 Intake Total 1290 1430 440 Output Total 200 150 Balance 1090 1430 290 Weight 73.6 kg General appearance: PRESENT: no acute distress Head exam: PRESENT: normocephalic Respiratory exam: PRESENT: unlabored Cardiovascular exam: PRESENT: RRR Pulses: PRESENT: +1 pedal pulses bilateral Vascular exam: PRESENT: normal capillary refill GI/Abdominal exam: PRESENT: soft Rectal exam: PRESENT: deferred Extremities exam: PRESENT: other - Right hip wound dressing removed. Wound surrounded by some ecchymosis but is well approximated and dry. There is minimal erythema. Leg lengths are equal. Distal neurovascular examination is intact. Neurological exam: PRESENT: alert, awake, oriented to person, oriented to place , oriented to time, oriented to situation. ABSENT: motor sensory deficit Psychiatric exam: PRESENT: appropriate affect, normal mood. ABSENT: homicidal ideation, suicidal ideation Skin exam: PRESENT: dry, intact, warm. ABSENT: cyanosis, rash Results Laboratory Results: 12/16/17 06:44 12/16/17 06:44 12/14/17 12/14/17 20:13 20:13 Creatine Kinase 217 H CK-MB (CK-2) 2.65 Troponin I < 0.012 Impressions: Hip/Pelvis X-Ray 12/14/17 14:44 IMPRESSION: Right femoral neck fracture with slight displacement. Chest X-Ray 12/14/17 15:54 IMPRESSION: NO ACUTE RADIOGRAPHIC FINDING IN THE CHEST. Pelvis X-Ray 12/16/17 00:00 IMPRESSION: SATISFACTORY POSTOPERATIVE PELVIS. Status: Imported from PACS Assessment & Plan - Diagnosis (1) Fracture of neck of right femur Qualifiers: Encounter type: initial encounter Fracture type: closed Qualified Code(s) : S72.001A - Fracture of unspecified part of neck of right femur, initial encounter for closed fracture Is this a current diagnosis for this admission?: Yes Plan: 87-year-old black male status post right proximal femoral hemiarthroplasty with an uneventful postoperative course. Limited progress with physical therapy. Suspect patient probably better served with a [facility] facility placement. - Time Time Spent with patient: 15-24 minutes Anticipated discharge: SNF Within: Other
[2017-12-19] MEDS: METFORMIN HCL 500 MG TABLET PO SCH (09:12)
[2017-12-19] MEDS: LOSARTAN POTASSIUM 50 MG TABLET PO SCH (09:15)
[2017-12-19] MEDS: NITROGLYCERIN 10 MG (0.4 MG/HR) PATCH.TD24 TOP SCH (09:15)
[2017-12-19] MEDS: RIVAROXABAN 10 MG TABLET PO SCH (16:42)
--- NOTE | 2017-12-19 19:28 | PDOC PROGRESS REPORT ---
Subjective Progress Note for:: 12/19/17 Subjective:: Patient reported no pain in right hip site except with movement! No chest pain or difficulty with breathing. No nausea, vomiting or abdominal pain. No fever or chills. Reason For Visit: F[facility] AT [facility] FROM STANDING POSITION Physical Exam Vital Signs: Temp Pulse Resp BP Pulse Ox 98.4 F 79 18 128/70 H 100 12/19/17 15:42 12/19/17 15:42 12/19/17 15:42 12/19/17 15:42 12/19/17 15:42 Intake & Output 12/18/17 12/19/17 12/20/17 06:59 06:59 06:59 Intake Total 1430 445 505 Output Total 150 150 Balance 1430 295 355 Weight 73.6 kg Physical Exam: General appearance: PRESENT: no acute distress Head exam: PRESENT: atraumatic, normocephalic Eye exam: PRESENT: conjunctiva pink, EOMI, PERRLA. ABSENT: Pallor, scleral icterus Mouth exam: PRESENT: moist Respiratory exam: PRESENT: clear to auscultation vishal Cardiovascular exam: PRESENT: RRR. ABSENT: diastolic murmur, rubs, systolic murmur GI/Abdominal exam: PRESENT: normal bowel sounds, soft. Colostomy site satisfactory. ABSENT: distended, guarding, mass, organomegaly, rebound, tenderness Extremities exam: ABSENT: pedal edema Musculoskeletal exam: ABSENT: ambulatory Neurological exam: PRESENT: alert, awake, oriented to person, oriented to place , oriented to time, oriented to situation, CN II-XII grossly intact. ABSENT: motor sensory deficit Psychiatric exam: PRESENT: appropriate affect, normal mood. ABSENT: homicidal ideation, suicidal ideation Skin exam: PRESENT: dry, warm, other - right thigh surgical wound site dressing satisfactory. ABSENT: cyanosis, rash Results Laboratory Results: 12/16/17 06:44 12/16/17 06:44 12/14/17 12/14/17 20:13 20:13 Creatine Kinase 217 H CK-MB (CK-2) 2.65 Troponin I < 0.012 Impressions: Hip/Pelvis X-Ray 12/14/17 14:44 IMPRESSION: Right femoral neck fracture with slight displacement. Chest X-Ray 12/14/17 15:54 IMPRESSION: NO ACUTE RADIOGRAPHIC FINDING IN THE CHEST. Pelvis X-Ray 12/16/17 00:00 IMPRESSION: SATISFACTORY POSTOPERATIVE PELVIS. 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 Is this a current diagnosis for this admission?: Yes (4) HTN (hypertension) Qualifiers: Hypertension type: essential hypertension Qualified Code(s): I10 - Essential (primary) hypertension Is this a current diagnosis for this admission?: Yes (5) HLD (hyperlipidemia) Qualifiers: Hyperlipidemia type: pure hypercholesterolemia Qualified Code(s): E78.00 - Pure hypercholesterolemia, unspecified; E78.0 - Pure hypercholesterolemia Is this a current diagnosis for this admission?: Yes (6) Osteoarthritis involving multiple joints on both sides of body Is this a current diagnosis for this admission?: Yes (7) Colostomy care Is this a current diagnosis for this admission?: Yes - Time Time Spent with patient: 25-34 minutes Medications reviewed and adjusted accordingly: Yes Anticipated discharge: SNF Within: Other - Inpatient Certification Based on my medical assessment, after consideration of the patient's comorbidities, presenting symptoms, or acuity I expect that the services needed warrant INPATIENT care.: Yes I certify that my determination is in accordance with my understanding of Medicare's requirements for reasonable and necessary INPATIENT services [42 CFR 412.3e].: Yes Medical Necessity: Need Close Monitoring Due to Risk of Patient Decompensation, Need for Pain Control, Risk of Complication if Not Cared For in Hospital Post Hospital Care: D/C or Transfer Summary - Plan Summary Plan Summary: See attending physician orders. Continue current medication management. Follow up with discharger can bander operator for SNF placement for STR.
[2017-12-19] MEDS: HYDROCODONE/ACETAMINOPHEN 5-325 MG TABLET PO PRN (21:51)
[2017-12-20 05:15] LABS: ABSOLUTE EOSINOPHILS # (AUTO) 0.3 10^3/uL (0.0-0.6); ABSOLUTE LYMPHOCYTES (AUTO) 0.9 10^3/uL (0.5-4.7); ABSOLUTE MONOCYTES (AUTO) 0.7 10^3/uL (0.1-1.4); ABSOLUTE NEUT (AUTO) 3.7 10^3/uL (1.7-8.2); BASOPHILS % (AUTO) 0.3 % (0-2); EOSINOPHILS % (AUTO) 5.3 % (0-6); HEMATOCRIT 26.9 % (37.9-51.0); HEMOGLOBIN 9.3 g/dL (13.5-17.0); LYMPHOCYTES % (AUTO) 15.9 % (13-45); MEAN CORPUSCULAR HEMOGLOBIN 31.9 pg (27.0-33.4); MEAN CORPUSCULAR HGB CONC 34.5 g/dL (32.0-36.0); MEAN CORPUSCULAR VOLUME 92 fl (80-97); PLATELET COUNT 208 10^3/uL (150-450); RED BLOOD COUNT 2.91 10^6/uL (4.35-5.55); RED CELL DISTRIBUTION WIDTH 14.3 % (11.5-14.0); SEGMENTED NEUTROPHILS % (AUTO) 65.5 % (42-78); TOTAL CELLS COUNTED % (AUTO) 100 %; WHITE BLOOD COUNT 5.6 10^3/uL (4.0-10.5)
[2017-12-20 05:34] LABS: ANION GAP 12 (5-19); BLOOD UREA NITROGEN 18 mg/dL (7-20); CALCIUM 8.6 mg/dL (8.4-10.2); CARBON DIOXIDE 25 mmol/L (22-30); CHLORIDE 101 mmol/L (98-107); GLUCOSE 143 mg/dL (75-110); POTASSIUM 4.3 mmol/L (3.6-5.0); SODIUM 137.8 mmol/L (137-145)
[2017-12-20] MEDS ORDERED: LANSOPRAZOLE 30 MG TAB.RAP.DR PO SCH (06:00)
--- NOTE | 2017-12-20 06:59 | PDOC PROGRESS REPORT ---
Subjective Progress Note for:: 12/20/17 Subjective:: 87-year-old -[place] male 5 days status post right hip hemiarthroplasty for femoral neck fracture. Patient lying recumbent in hospital bed comfortable this morning no complaints overnight. Reason For Visit: FALL AT [employer] FROM STANDING POSITION Physical Exam Vital Signs: Temp Pulse Resp BP Pulse Ox 37.3 C 72 17 119/58 L 98 12/19/17 23:44 12/19/17 23:44 12/19/17 23:44 12/19/17 23:44 12/19/17 23:44 Intake & Output 12/18/17 12/19/17 12/20/17 06:59 06:59 06:59 Intake Total 1430 445 868 Output Total 150 410 Balance 1430 295 458 Weight 73.6 kg General appearance: PRESENT: no acute distress, well-developed, well-nourished Head exam: PRESENT: atraumatic, normocephalic Respiratory exam: PRESENT: unlabored Pulses: PRESENT: normal dorsalis pedis pul, +2 pedal pulses bilateral Vascular exam: PRESENT: normal capillary refill Additional comments: Patient lying recumbent in hospital bed with bilateral lower extremities in full extension. His OpSite dressing was removed yesterday and grant appear intact with wound margins healing appropriately. There is no evidence of erythema ecchymosis induration or purulent drainage. He has brisk capillary refill to toes on bilateral lower extremities minimal pedal edema. Leggings equal and distal neurovascular exam intact. Musculoskeletal exam: PRESENT: ambulatory Additional comments: Patient makes further progress with physical therapy ambulating 40 feet independently. He will continue to work with physical therapy throughout his stay at the hospital and at his [facility] facility to improve strength and range of motion of right lower extremity. Neurological exam: PRESENT: alert, awake, oriented to person, oriented to place , oriented to time, oriented to situation, CN II-XII grossly intact. ABSENT: motor sensory deficit Psychiatric exam: PRESENT: appropriate affect, normal mood. ABSENT: homicidal ideation, suicidal ideation Skin exam: PRESENT: dry, intact, warm. ABSENT: cyanosis, rash Results Laboratory Results: 12/20/17 04:04 12/20/17 04:04 12/20/17 12/20/17 04:04 04:04 WBC 5.6 RBC 2.91 L Hgb 9.3 L Hct 26.9 L MCV 92 MCH 31.9 MCHC 34.5 RDW 14.3 H Plt Count 208 Seg Neutrophils % 65.5 Lymphocytes % 15.9 Monocytes % 13.0 Eosinophils % 5.3 Basophils % 0.3 Absolute Neutrophils 3.7 Absolute Lymphocytes 0.9 Absolute Monocytes 0.7 Absolute Eosinophils 0.3 Absolute Basophils 0.0 Sodium 137.8 Potassium 4.3 Chloride 101 Carbon Dioxide 25 Anion Gap 12 BUN 18 Creatinine 0.78 Est GFR ( Amer) > 60 Est GFR (Non-Af Amer) > 60 Glucose 143 H Calcium 8.6 12/14/17 12/14/17 20:13 20:13 Creatine Kinase 217 H CK-MB (CK-2) 2.65 Troponin I < 0.012 Impressions: Hip/Pelvis X-Ray 12/14/17 14:44 IMPRESSION: Right femoral neck fracture with slight displacement. Chest X-Ray 12/14/17 15:54 IMPRESSION: NO ACUTE RADIOGRAPHIC FINDING IN THE CHEST. Pelvis X-Ray 12/16/17 00:00 IMPRESSION: SATISFACTORY POSTOPERATIVE PELVIS. Assessment & Plan - Diagnosis (1) Closed right hip fracture Qualifiers: Encounter type: subsequent encounter Fracture healing: with routine healing Qualified Code(s): S72.001D - Fracture of unspecified part of neck of right femur, subsequent encounter for closed fracture with routine healing Is this a current diagnosis for this admission?: Yes Plan: 87-year-old -[place] male 5 days status post right hip hemiarthroplasty. Patient makes progress with physical therapy and relating 40 feet independently. He will continue to work with PT throughout her stay at the hospital and at his [facility] facility upon discharge to improve strength range of motion of right lower extremity. It was determined the patient desires to be discharged to a f[facility] facility and discharge planning has found him placement [facility] at [facility]. Once this placement is confirmed he will likely be discharged by attending physician Dr. Ele Gonzales. This is an appropriate plan that the orthopedic team is in agreement with. He will then follow-up with [facility] for surgery and Dr. Wang 2 weeks postoperatively for staple removal.
[2017-12-20] MEDS: NITROGLYCERIN 10 MG (0.4 MG/HR) PATCH.TD24 TOP SCH (08:52)
[2017-12-20] MEDS: LOSARTAN POTASSIUM 50 MG TABLET PO SCH (08:52)
[2017-12-20] MEDS: METFORMIN HCL 500 MG TABLET PO SCH (08:52)
[2017-12-20] MEDS: HYDROCODONE/ACETAMINOPHEN 5-325 MG TABLET PO PRN (11:09)
--- NOTE | 2017-12-20 15:44 | PDOC TRANSFER SUMMARY ---
General - Admit/Disc Date/PCP Admission Date/Primary Care Provider: 12/14/17 17:[address] [facility] Discharge Date: 12/20/17 - Discharge Diagnosis (1) Fall in elderly patient Is this a current diagnosis for this admission?: Yes (2) Fracture of neck of right femur Is this a current diagnosis for this admission?: Yes (3) Diabetes mellitus type 2 in nonobese Is this a current diagnosis for this admission?: Yes (4) HTN (hypertension) Is this a current diagnosis for this admission?: Yes (5) HLD (hyperlipidemia) Is this a current diagnosis for this admission?: Yes (6) Osteoarthritis involving multiple joints on both sides of body Is this a current diagnosis for this admission?: Yes (7) Colostomy care Is this a current diagnosis for this admission?: Yes - Additional Information Resuscitation Status: Full Code Home Medications: Meclizine HCl [Antivert 25 mg Tablet] 25 mg PO Q8HP PRN 12/14/17 Metformin HCl [Glucophage] 500 mg PO DAILY 12/14/17 Nitroglycerin [Nitro-Dur 10 mg (0.4MG/Hr) Transdermal Patch] 1 patch TOP DAILY 12/14/17 Telmisartan [Micardis 40 mg Tablet] 40 mg PO DAILY 12/14/17 Zolpidem Tartrate [Ambien] 10 mg PO QHS 12/14/17 History of Present Illness Admission Date/PCP: 12/14/17 17:[address] [facility] History of Present Illness: Patient is an 87-year-old black male with a noncontributory past medical history and who is a community ambulator. He fell in a grocery store yesterday and sustained a right hip injury. He is brought to the emergency room were displaced right femoral neck fracture is identified. The patient is admitted to his primary care physician and orthopedics is consulted for fracture management. Hospital Course Hospital Course: Patient was seen by Dr. Wang, orthopedic surgeon, and taken to the operating room on 12/15/17 for right total hip arthroplasty due to femoral neck fracture. Postoperatively patient did very well and participated in physical therapy. His pain was adequately controlled on current pain medication regimen. He is agreeable to transfer to [facility] for short term rehabilitation. HE will be transferred to the facility and follow up with Dr Wang as instructed upon transfer and with me upon discharged from the facility. Physical Exam Vital Signs: Temp Pulse Resp BP Pulse Ox 98.8 F 75 18 121/57 L 98 12/20/17 12:08 12/20/17 12:08 12/20/17 12:08 12/20/17 12:08 12/20/17 12:08 Intake & Output 12/19/17 12/20/17 12/21/17 06:59 06:59 06:59 Intake Total 445 868 Output Total 150 410 Balance 295 458 General appearance: PRESENT: no acute distress Head exam: PRESENT: atraumatic, normocephalic Eye exam: PRESENT: conjunctiva pink, EOMI, PERRLA. ABSENT: Pallor, scleral icterus Mouth exam: PRESENT: moist Respiratory exam: PRESENT: clear to auscultation vishal Cardiovascular exam: PRESENT: RRR. ABSENT: diastolic murmur, rubs, systolic murmur GI/Abdominal exam: PRESENT: normal bowel sounds, soft. Colostomy site satisfactory. ABSENT: distended, guarding, mass, organomegaly, rebound, tenderness Extremities exam: ABSENT: pedal edema Musculoskeletal exam: ABSENT: ambulatory Neurological exam: PRESENT: alert, awake, oriented to person, oriented to place , oriented to time, oriented to situation, CN II-XII grossly intact. ABSENT: motor sensory deficit Psychiatric exam: PRESENT: appropriate affect, normal mood. ABSENT: homicidal ideation, suicidal ideation Skin exam: PRESENT: dry, warm, other - right thigh surgical wound site healing satisfactorily. ABSENT: cyanosis, rash Results Laboratory Results: 12/20/17 04:04 12/20/17 04:04 12/20/17 12/20/17 04:04 04:04 WBC 5.6 RBC 2.91 L Hgb 9.3 L Hct 26.9 L MCV 92 MCH 31.9 MCHC 34.5 RDW 14.3 H Plt Count 208 Seg Neutrophils % 65.5 Lymphocytes % 15.9 Monocytes % 13.0 Eosinophils % 5.3 Basophils % 0.3 Absolute Neutrophils 3.7 Absolute Lymphocytes 0.9 Absolute Monocytes 0.7 Absolute Eosinophils 0.3 Absolute Basophils 0.0 Sodium 137.8 Potassium 4.3 Chloride 101 Carbon Dioxide 25 Anion Gap 12 BUN 18 Creatinine 0.78 Est GFR ( Amer) > 60 Est GFR (Non-Af Amer) > 60 Glucose 143 H Calcium 8.6 12/14/17 12/14/17 20:13 20:13 Creatine Kinase 217 H CK-MB (CK-2) 2.65 Troponin I < 0.012 Impressions: Hip/Pelvis X-Ray 12/14/17 14:44 IMPRESSION: Right femoral neck fracture with slight displacement. Chest X-Ray 12/14/17 15:54 IMPRESSION: NO ACUTE RADIOGRAPHIC FINDING IN THE CHEST. Pelvis X-Ray 12/16/17 00:00 IMPRESSION: SATISFACTORY POSTOPERATIVE PELVIS. Qualifiers - * PATEINT BEING DISCHARGED WITH ANY OF THE FOLLOWING DIAGNOSIS?: No Plan Discharge Plan: Transfer to [facility] for short term rehabilitation.
[2017-12-20 16:14] VITALS: BP 115/51
[2017-12-20] MEDS: RIVAROXABAN 10 MG TABLET PO SCH (16:58)
== END 2017-12-20 18:50 | DRG 470 ==
LOC: ER 14:41 → EH 17:11 → 4N 19:00
PROVIDERS: ADMIT Internal Medicine Geriatric Medicine; ATTEND Internal Medicine Geriatric Medicine
PROC: 0SRR01Z Replacement of Right Hip Joint, Femoral Surface with Metal Synthetic Substitute, Open Approach (ICD-10-PCS; principal; 2017-12-15 11:30)
DX: S72.011A Unspecified intracapsular fracture of right femur, initial encounter for closed fracture (principal); W18.30XA Fall on same level, unspecified, initial encounter; Y92.512 Supermarket, store or market as the place of occurrence of the external cause; S51.011A Laceration without foreign body of right elbow, initial encounter; E11.9 Type 2 diabetes mellitus without complications; I10 Essential (primary) hypertension; E78.5 Hyperlipidemia, unspecified; M19.90 Unspecified osteoarthritis, unspecified site; G47.00 Insomnia, unspecified; E78.00 Pure hypercholesterolemia, unspecified; Z93.3 Colostomy status; Z85.038 Personal history of other malignant neoplasm of large intestine
CPT/HCPCS: 01210; 36415; 71045; 72170; 80048; 80053; 82550; 82553; 82962; 84484; 85025; 85610; 85730; 88304; 88311; 93005; 93010; 96374; 99285; C9290; G8978-GP; G8979-GP; J0131; J1170; J2250; J2704; J3010; J3370; J3490; J7030; J7060; J7120

== ENCOUNTER 2018-02-04 10:04 | Observation (INO) | payer MEDICARE, OTHER ==
[2018-02-04 10:33] LABS: ABSOLUTE EOSINOPHILS # (AUTO) 0.2 10^3/uL (0.0-0.6); ABSOLUTE LYMPHOCYTES (AUTO) 1.5 10^3/uL (0.5-4.7); ABSOLUTE MONOCYTES (AUTO) 0.5 10^3/uL (0.1-1.4); ABSOLUTE NEUT (AUTO) 2.8 10^3/uL (1.7-8.2); BASOPHILS % (AUTO) 0.6 % (0-2); HEMATOCRIT 33.6 % (37.9-51.0); HEMOGLOBIN 11.3 g/dL (13.5-17.0); LYMPHOCYTES % (AUTO) 29.5 % (13-45); MEAN CORPUSCULAR HEMOGLOBIN 30.9 pg (27.0-33.4); MEAN CORPUSCULAR HGB CONC 33.5 g/dL (32.0-36.0); MEAN CORPUSCULAR VOLUME 92 fl (80-97); MONOCYTES % (AUTO) 9.5 % (3-13); PLATELET COUNT 196 10^3/uL (150-450); RED BLOOD COUNT 3.64 10^6/uL (4.35-5.55); RED CELL DISTRIBUTION WIDTH 15.1 % (11.5-14.0); SEGMENTED NEUTROPHILS % (AUTO) 56.4 % (42-78); TOTAL CELLS COUNTED % (AUTO) 100 %; WHITE BLOOD COUNT 4.9 10^3/uL (4.0-10.5)
[2018-02-04 10:35] LABS: VENOUS BLOOD BASE EXCESS 0.2 mmol/L; VENOUS BLOOD HCO3 26.5 mmol/L (20-32); VENOUS BLOOD PCO2 49.7 mmHg (35-63); VENOUS BLOOD PH 7.35 (7.30-7.42)
[2018-02-04 10:47] LABS: INTERNATIONAL RATION (INR) 1.46; PARTIAL THROMBOPLASTIN TIME 43.7 SEC (23.5-35.8); PROTHROMBIN TIME 18.5 SEC (11.4-15.4)
[2018-02-04 10:52] LABS: ALANINE AMINOTRANSFERASE 16 U/L (21-72); ALBUMIN 3.7 g/dL (3.5-5.0); ALKALINE PHOSPHATASE 55 U/L (38-126); ANION GAP 12 (5-19); ASPARTATE AMINO TRANSFERASE 16 U/L (17-59); BILIRUBIN,DIRECT 0.2 mg/dL (0.0-0.4); BILIRUBIN,TOTAL 0.2 mg/dL (0.2-1.3); BLOOD UREA NITROGEN 11 mg/dL (7-20); CALCIUM 9.2 mg/dL (8.4-10.2); CARBON DIOXIDE 25 mmol/L (22-30); CHLORIDE 105 mmol/L (98-107); GLUCOSE 146 mg/dL (75-110); POTASSIUM 4.1 mmol/L (3.6-5.0); SODIUM 141.9 mmol/L (137-145); TOTAL PROTEIN 6.4 g/dL (6.3-8.2)
--- NOTE | 2018-02-04 10:53 | RADIOLOGY REPORT (SQ) ---
EXAM DESCRIPTION: CT HEAD WITHOUT COMPLETED DATE/TIME: 02/04/2018 10:36 am REASON FOR STUDY: ams COMPARISON: None. TECHNIQUE: Axial images acquired through the brain without intravenous contrast. Images reviewed wi th bone, brain and subdural windows. Additional sagittal and coronal reconstructions were generated. Images stored on PACS. All CT scanners at this facility use dose modulation, iterative reconstruction, and/or weight based d osing when appropriate to reduce radiation dose to as low as reasonably achievable (ALARA). [facility]: Dose Right [facility]: CareDose [facility]: Dose Right [facility]: Teradose 4D [facility]: CompStak RADIATION DOSE: CT Rad equipment meets quality standard of care and radiation dose reduction techniq ues were employed. CTDIvol: 53.2 mGy. DLP: 1017 mGy-cm. mGy. LIMITATIONS: None. FINDINGS: VENTRICLES: Prominent. CEREBRUM: No masses. No hemorrhage. No midline shift. Areas of low density in the white matter mos t likely due to chronic micro-vascular ischemic change. No evidence for acute infarction. CEREBELLUM: No masses. No hemorrhage. No alteration of density. No evidence for acute infarction. EXTRAAXIAL SPACES: Mild age-related involutional change. No fluid collections. No masses. ORBITS AND GLOBE: No intra- or extraconal masses. Normal contour of globe without masses. CALVARIUM: No fracture. PARANASAL SINUSES: No fluid or mucosal thickening. SOFT TISSUES: No mass or hematoma. OTHER: No other significant finding. IMPRESSION: MILD CHRONIC CHANGES OF ATROPHY AND MICROVASCULAR ISCHEMIA. NO ACUTE PROCESS. EVIDENCE OF ACUTE STROKE: No TECHNICAL DOCUMENTATION: JOB ID: [id number] Quality ID # [id number]: Final reports with documentation of one or more dose reduction techniques (e.g., Au tomated exposure control, adjustment of the mA and/or kV according to patient size, use of iterative reconstruction technique) 2010 [employer]- All Rights Reserved Reading location - IP/workstation name: [email or web address]
--- NOTE | 2018-02-04 11:05 | RADIOLOGY REPORT (SQ) ---
EXAM DESCRIPTION: CHEST SINGLE VIEW COMPLETED DATE/TIME: 02/04/2018 10:56 am REASON FOR STUDY: ams COMPARISON: 12/14/2017 EXAM PARAMETERS: NUMBER OF VIEWS: One view. TECHNIQUE: Single frontal radiographic view of the chest acquired. RADIATION DOSE: NA LIMITATIONS: None. FINDINGS: LUNGS AND PLEURA: Bilateral low lung volumes with some resultant bronchovascular crowding. No definite airspace consolidation or pleural effusion. MEDIASTINUM AND HILAR STRUCTURES: No masses. Contour normal. HEART AND VASCULAR STRUCTURES: Heart normal in size. Normal vasculature. BONES: No acute findings. HARDWARE: None in the chest. OTHER: No other significant finding. IMPRESSION: Bilateral low lung volumes, otherwise unremarkable exam. TECHNICAL DOCUMENTATION: JOB ID: [id number] [employer] All Rights Reserved Reading location - IP/workstation name: [email or web address]
[2018-02-04 12:45] LABS: APPEARANCE,URINE CLEAR; BILIRUBIN,URINE NEGATIVE (NEGATIVE); COLOR,URINE YELLOW; GLUCOSE, URINE NEGATIVE (NEGATIVE); KETONES,URINE NEGATIVE (NEGATIVE); LEUKOCYTE ESTERASE,URINE NEGATIVE (NEGATIVE); NITRITE,URINE NEGATIVE (NEGATIVE); PROTEIN,URINE NEGATIVE (NEGATIVE); URINE SPECIFIC GRAVITY 1.017; UROBILINOGEN,URINE NEGATIVE mg/dL (<2.0)
[2018-02-04 13:00] LABS: URINE AMPHETAMINES SCREEN NEGATIVE; URINE BARBITURATES SCREEN NEGATIVE; URINE BENZODIAZEPINES SCREEN NEGATIVE; URINE COCAINE SCREEN NEGATIVE; URINE MARIJUANA (THC) SCREEN NEGATIVE; URINE METHADONE SCREEN NEGATIVE; URINE PHENCYCLIDINE SCREEN NEGATIVE
[2018-02-04] MEDS ORDERED: HYDRALAZINE HCL INJ/PF 20 MG/1 ML SDV IV ONE ×2 (13:10→21:30)
--- NOTE | 2018-02-04 13:39 | RADIOLOGY REPORT (SQ) ---
EXAM DESCRIPTION: MRI HEAD WITHOUT COMPLETED DATE/TIME: 02/04/2018 1:26 pm REASON FOR STUDY: ams COMPARISON: CT head same day TECHNIQUE: Multiplanar imaging includes non-contrasted T1, T2, FLAIR, and diffusion with ADC map seq uences. Images stored on PACS. LIMITATIONS: Patient motion FINDINGS: ANATOMY: No anomalies. Normal vascular flow voids. Pituitary fossa normal. CSF SPACES: Atrophy induced prominence of ventricles and CSF spaces. CEREBRUM: High signal intensity lesions scattered throughout the white matter on FLAIR imaging with d istribution suggesting micro-vascular ischemic changes. No evidence of hemorrhage, mass, or extraaxi al fluid collection. POSTERIOR FOSSA: No signal alteration. No hemorrhage. No edema, masses or mass effect. Internal rogelio tory canals, cerebello-pontine angles, mastoids normal. DIFFUSION IMAGING: Negative for acute or sub-acute infarction. ORBITS: No masses. Globes normal. PARANASAL SINUSES: No fluid levels. Mucosa normal. OTHER: No other significant finding. IMPRESSION: ATROPHY AND CHRONIC MICRO-VASCULAR ISCHEMIC CHANGES. OTHERWISE NORMAL MRI OF THE BRAIN W ITHOUT INTRAVENOUS GADOLINIUM CONTRAST. EVIDENCE OF ACUTE STROKE: NO. TECHNICAL DOCUMENTATION: JOB ID: [id number] [employer]- All Rights Reserved Reading location - IP/workstation name: [email or web address]
--- NOTE | 2018-02-04 14:00 | ER Document Report ---
ED General - General Chief Complaint: Altered Mental Status Stated Complaint: ALTERED MENTAL STATUS Time Seen by Provider: 02/04/18 10:17 TRAVEL OUTSIDE OF THE [place] IN LAST 30 DAYS: No - HPI Patient complains to provider of: Altered mental state Notes: Patient coming in today for evaluation altered mental state. According to the daughter at bedside patient was at his house and moving around was normal and then became very lethargic and weak and possible syncopal episode she was able to lower him to the ground. Patient upon EMS arrival was reported to be alert to voice however with quickly eventually. Upon arrival here to the ER patient is snoring. Upon trying IV access patient does move all 4 extremities. And able to wake patient up to very loud verbal stimuli. Patient otherwise has normal vital signs not does not look to be in any distress. Patient because of his drowsiness is unable to provide much of the HPI. No family at bedside upon initial evaluation - Related Data Allergies/Adverse Reactions: No Known Allergies Allergy (Unverified 12/14/17 14:44) Past Medical History - Social History Smoking Status: Former Smoker Chew tobacco use (# tins/day): No Frequency of alcohol use: None Drug Abuse: None Family History: Reviewed & Not Pertinent Patient has suicidal ideation: No Patient has homicidal ideation: No - Past Medical History Cardiac Medical History: Reports: Hx Hypercholesterolemia, Hx Hypertension Endocrine Medical History: Reports: Hx Diabetes Mellitus Type 2 Renal/ Medical History: Denies: Hx Peritoneal Dialysis Past Surgical History: Reports: Hx Bowel Surgery - colostomy Review of Systems - Review of Systems -: Yes ROS unobtainable due to patient's medical condition - Altered mental state Physical Exam - Vital signs Vitals: Resp Pulse Ox 14 97 02/04/18 10:07 02/04/18 10:07 Interpretation: Normal - General General appearance: Alert, Other - Drowsy - HEENT Head: Normocephalic, Atraumatic Eyes: Normal Pupils: PERRL - Respiratory Respiratory status: No respiratory distress Chest status: Nontender Breath sounds: Normal Chest palpation: Normal - Cardiovascular Rhythm: Regular Heart sounds: Normal auscultation Murmur: No - Abdominal Inspection: Normal Distension: No distension Bowel sounds: Normal Tenderness: Nontender Organomegaly: No organomegaly - Back Back: Normal, Nontender - Extremities General upper extremity: Normal inspection, Nontender, Normal color, Normal ROM , Normal temperature General lower extremity: Normal inspection, Nontender, Normal color, Normal ROM , Normal temperature, Normal weight bearing. No: Aneta's sign - Neurological Neuro grossly intact: Yes Cognition: Normal Orientation: AAOx4 [place] Coma Scale Eye Opening: To Voice [place] Coma Scale Verbal: Confused [place] Coma Scale Motor: Obeys Commands [place] Coma Scale Total: 13 Speech: Normal Motor strength normal: LUE, RUE, LLE, RLE Sensory: Normal - Skin Skin Temperature: Warm Skin Moisture: Dry Skin Color: Normal Course - Re-evaluation Re-evalutation: 02/04/18 14:56 Patient medications that should the patient is on Xarelto therefore patient had emergent CT scan performed showing no signs of intracranial hemorrhage. Upon reevaluation at the CT scan patient is able to stay awake for a little bit longer patient does deny any head pain chest pain abdominal pain. Patient is able to follow commands squeeze my hands equal staff design engineer also raise legs no signs of acute unilateral weakness. Patient however still remains drowsy. Again medication list does show that the patient is on Ambien. Family at bedside now is unaware of patient taking extra medication. MRI of the patient's head was performed again showing those acute intracranial pathology. Laboratory studies also did not show any signs of infection or metabolic derangement to attribute to the patient's drowsiness. Did discuss with covering PCP Dr. Bill agrees to admit the patient for observation. More likely patient's altered mental state is due to his home meds patient is positive for opiates at this time did not have any list showing the patient is on any opiate medication. More likely patient will be needed to be taken off of his Ambien for sleep - Vital Signs Vital signs: Temp Pulse Resp BP Pulse Ox 15 193/148 H 100 02/04/18 12:02 02/04/18 12:02 02/04/18 12:02 - Laboratory Result Diagrams: 02/04/18 10:10 02/04/18 10:10 Laboratory results interpreted by me: 02/04/18 02/04/18 02/04/18 10:10 10:10 10:10 RBC 3.64 L Hgb 11.3 L Hct 33.6 L RDW 15.1 H PT 18.5 H APTT 43.7 H Glucose 146 H AST 16 L ALT 16 L Urine Ascorbic Acid 02/04/18 12:16 RBC Hgb Hct RDW PT APTT Glucose AST ALT Urine Ascorbic Acid 20 H Discharge - Discharge Clinical Impression: Altered mental state Qualifiers: Altered mental status type: unspecified Qualified Code(s): R41.82 - Altered mental status, unspecified Condition: Good Disposition: ADMITTED OBSERVATION Admitting Provider: [facility] Admitted: Telemetry
--- NOTE | 2018-02-04 14:59 | EKG REPORT ---
SEVERITY:- NORMAL ECG - SINUS RHYTHM : Confirmed by: Milton Martinez MD 04-Feb-2018 14:59:20
[2018-02-04] MEDS ORDERED: DEXTROSE 50%-WATER SYRINGE 25 GM/50 ML DOSE IV PRN (22:09)
[2018-02-04] MEDS ORDERED: DEXTROSE 50%-WATER SYRINGE 12.5 GM/25 ML DOSE IV PRN (22:09)
[2018-02-04] MEDS ORDERED: GLUCAGON,HUMAN RECOMB 1 MG INJ IM PRN (22:09)
[2018-02-04] MEDS ORDERED: DEXTROSE 40% GEL 15 GM TUBE PO PRN (22:09)
[2018-02-04] MEDS ORDERED: INSULIN LISPRO 100 UNIT/ML 3 ML VIAL SUBCUT PRN (22:09)
[2018-02-04] MEDS ORDERED: DEXTROSE 40% GEL 15 GM TUBE X 2 PO PRN (22:09)
[2018-02-05 08:20] VITALS: BP 163/69
[2018-02-05] MEDS ORDERED: ENOXAPARIN SODIUM INJ 40 MG/0.4 ML DISP.SYRIN SUBCUT SCH (10:00)
[2018-02-05] MEDS ORDERED: MECLIZINE HCL 25 MG TABLET PO PRN (11:09)
[2018-02-05] MEDS ORDERED: (PENDING PHARMACY ID) (Telmisartan [Micardis 40 Mg Tablet] 40 MG) PO SCH (11:15)
[2018-02-05] MEDS ORDERED: RIVAROXABAN 10 MG TABLET PO SCH (11:15)
[2018-02-05] MEDS ORDERED: NITROGLYCERIN 10 MG (0.4 MG/HR) PATCH.TD24 TD SCH (11:15)
--- NOTE | 2018-02-05 11:23 | PDOC H&P ---
History of Present Illness Admission Date/PCP: 02/04/18 14:06 IRENE GUERRERO History of Present Illness: JENNIFER BAY is a 87 year old male, he came to the emergency room for evaluation of altered mental status, in the emergency room he was extensively evaluated, the blood work that was done showed normal metabolic profile, there was no metabolic explanation for patient's altered mental status. CT scan of the head was done, this was negative for an acute pathology, MRI of the brain was done, it showed atrophy and chronic microvascular ischemic changes otherwise it was a normal MRI. The altered mental status was characterized as confusion, the emergency room physician wants patient admitted for observation. When I saw patient on the floor, he was alert and oriented to time, place and person. The urine drug screen was positive for opiates it is assumed that the opiate is probably the etiology of the confusion Past Medical History Cardiac Medical History: Reports: Hyperlipidema, Hypertension Endocrine Medical History: Reports: Diabetes Mellitus Type 2 Social History Smoking Status: Former Smoker - Advance Directive Resuscitation Status: Full Code Family History Family History: Reviewed & Not Pertinent Parental Family History Reviewed: Yes Children Family History Reviewed: Yes Sibling(s) Family History Reviewed.: Yes Medication/Allergy Home Medications: Meclizine HCl [Antivert 25 mg Tablet] 25 mg PO Q8HP PRN 02/05/18 Metformin HCl [Glucophage 500 mg Tablet] 500 mg PO DAILY 02/05/18 Nitroglycerin [Nitro-Dur 10 mg (0.4MG/Hr) Transdermal Patch] 1 patch TD DAILY Rivaroxaban [Xarelto 10 mg Tablet] 10 mg PO DAILY 02/05/18 Telmisartan [Micardis 40 mg Tablet] 40 mg PO DAILY 02/05/18 Zolpidem Tartrate [Ambien] 10 mg PO QHS 02/05/18 Allergies/Adverse Reactions: No Known Allergies Allergy (Unverified 12/14/17 14:44) Review of Systems Constitutional: ABSENT: chills, fever(s), headache(s), weight gain, weight loss Eyes: ABSENT: visual disturbances Ears: ABSENT: hearing changes Cardiovascular: ABSENT: chest pain, dyspnea on exertion, edema, orthropnea, palpitations Respiratory: ABSENT: cough, hemoptysis Gastrointestinal: ABSENT: abdominal pain, constipation, diarrhea, hematemesis, hematochezia, nausea, vomiting Genitourinary: ABSENT: dysuria, hematuria Musculoskeletal: ABSENT: joint swelling Integumentary: ABSENT: rash, wounds Neurological: PRESENT: confusion. ABSENT: abnormal gait, abnormal speech, dizziness, focal weakness, syncope Psychiatric: ABSENT: anxiety, depression, homidical ideation, suicidal ideation Endocrine: ABSENT: cold intolerance, heat intolerance, menstrual abnormalities, polydipsia, polyuria Hematologic/Lymphatic: ABSENT: easy bleeding, easy bruising, lymphadenopathy Physical Exam Vital Signs: Temp Pulse Resp BP Pulse Ox 98.2 F 62 16 163/69 H 99 02/05/18 07:20 02/05/18 07:20 02/05/18 07:20 02/05/18 07:20 02/05/18 07:20 Intake & Output 02/04/18 02/05/18 02/06/18 06:59 06:59 06:59 Intake Total 320 Output Total 350 Balance -30 Weight 69.6 kg General appearance: PRESENT: no acute distress, well-developed, well-nourished Head exam: PRESENT: atraumatic, normocephalic Eye exam: PRESENT: PERRLA Ear exam: PRESENT: normal external ear exam Mouth exam: PRESENT: moist, tongue midline Neck exam: PRESENT: full ROM Respiratory exam: PRESENT: clear to auscultation vishal Cardiovascular exam: PRESENT: RRR, +S1, +S2 Vascular exam: PRESENT: normal capillary refill GI/Abdominal exam: PRESENT: soft, other - Colostomy bag Rectal exam: PRESENT: deferred Neurological exam: PRESENT: alert, CN II-XII grossly intact Psychiatric exam: PRESENT: appropriate affect, normal mood Skin exam: PRESENT: dry, intact, warm Results Impressions: Chest X-Ray 02/04/18 10:18 IMPRESSION: Bilateral low lung volumes, otherwise unremarkable exam. Head CT 02/04/18 10:18 IMPRESSION: MILD CHRONIC CHANGES OF ATROPHY AND MICROVASCULAR ISCHEMIA. NO ACUTE PROCESS. EVIDENCE OF ACUTE STROKE: No Head MRI 02/04/18 11:10 IMPRESSION: ATROPHY AND CHRONIC MICRO-VASCULAR ISCHEMIC CHANGES. OTHERWISE NORMAL MRI OF THE BRAIN WITHOUT INTRAVENOUS GADOLINIUM CONTRAST. EVIDENCE OF ACUTE STROKE: NO. Assessment & Plan - Diagnosis (1) Encephalopathy, unspecified Is this a current diagnosis for this admission?: Yes Plan: Patient is admitted for observation (2) Diabetes mellitus type 2 in nonobese Is this a current diagnosis for this admission?: Yes
--- NOTE | 2018-02-05 11:30 | PDOC DISCHARGE SUMMARY ---
General - Admit/Disc Date/PCP Admission Date/Primary Care Provider: 02/04/18 14:06 IRENE GUERRERO Discharge Date: 02/05/18 - Discharge Diagnosis (1) Encephalopathy, unspecified Is this a current diagnosis for this admission?: Yes (2) Diabetes mellitus type 2 in nonobese Is this a current diagnosis for this admission?: Yes - Additional Information Resuscitation Status: Full Code Home Medications: Meclizine HCl [Antivert 25 mg Tablet] 25 mg PO Q8HP PRN 02/05/18 Metformin HCl [Glucophage 500 mg Tablet] 500 mg PO DAILY 02/05/18 Nitroglycerin [Nitro-Dur 10 mg (0.4MG/Hr) Transdermal Patch] 1 patch TD DAILY Rivaroxaban [Xarelto 10 mg Tablet] 10 mg PO DAILY 02/05/18 Telmisartan [Micardis 40 mg Tablet] 40 mg PO DAILY 02/05/18 Zolpidem Tartrate [Ambien] 10 mg PO QHS 02/05/18 History of Present Illness History of Present Illness: JENNIFER BAY is a 87 year old male, he came to the emergency room for evaluation of altered mental status, in the emergency room he was extensively evaluated, the blood work that was done showed normal metabolic profile, there was no metabolic explanation for patient's altered mental status. CT scan of the head was done, this was negative for an acute pathology, MRI of the brain was done, it showed atrophy and chronic microvascular ischemic changes otherwise it was a normal MRI. The altered mental status was characterized as confusion, the emergency room physician wants patient admitted for observation. When I saw patient on the floor, he was alert and oriented to time, place and person. The urine drug screen was positive for opiates it is assumed that the opiate is probably the etiology of the confusion Hospital Course Hospital Course: Patient was admitted for observation, he regained full consciousness, the altered mental status is most likely from medication, there is no indication for inpatient care at this time he be discharged home, he will follow with Dr. Guerrero in the office within the next 7 days Physical Exam Vital Signs: Temp Pulse Resp BP Pulse Ox 98.2 F 62 16 163/69 H 99 02/05/18 07:20 02/05/18 07:20 02/05/18 07:20 02/05/18 07:20 04/15/18 07:20 Intake & Output 02/04/18 02/05/18 02/06/18 06:59 06:59 06:59 Intake Total 320 Output Total 350 Balance -30 Weight 69.6 kg General appearance: PRESENT: no acute distress Eye exam: PRESENT: PERRLA Ear exam: PRESENT: normal external ear exam Mouth exam: PRESENT: moist, tongue midline Neck exam: PRESENT: full ROM Cardiovascular exam: PRESENT: RRR, +S1, +S2 Vascular exam: PRESENT: normal capillary refill GI/Abdominal exam: PRESENT: normal bowel sounds, soft Rectal exam: PRESENT: deferred Neurological exam: PRESENT: alert Psychiatric exam: PRESENT: appropriate affect Results Impressions: Chest X-Ray 02/04/18 10:18 IMPRESSION: Bilateral low lung volumes, otherwise unremarkable exam. Head CT 02/04/18 10:18 IMPRESSION: MILD CHRONIC CHANGES OF ATROPHY AND MICROVASCULAR ISCHEMIA. NO ACUTE PROCESS. EVIDENCE OF ACUTE STROKE: No Head MRI 02/04/18 11:10 IMPRESSION: ATROPHY AND CHRONIC MICRO-VASCULAR ISCHEMIC CHANGES. OTHERWISE NORMAL MRI OF THE BRAIN WITHOUT INTRAVENOUS GADOLINIUM CONTRAST. EVIDENCE OF ACUTE STROKE: NO. Qualifiers - * PATEINT BEING DISCHARGED WITH ANY OF THE FOLLOWING DIAGNOSIS?: No
[2018-02-05] MEDS ORDERED: METFORMIN HCL 500 MG TABLET PO ONE (12:00)
[2018-02-05] MEDS ORDERED: NITROGLYCERIN 10 MG (0.4 MG/HR) PATCH.TD24 TD ONE (12:00)
[2018-02-05] MEDS ORDERED: LOSARTAN POTASSIUM 50 MG TABLET PO ONE (12:00)
[2018-02-05] MEDS ORDERED: RIVAROXABAN 10 MG TABLET PO ONE (12:00)
[2018-02-06] MEDS ORDERED: RIVAROXABAN 10 MG TABLET PO SCH (10:00)
[2018-02-06] MEDS ORDERED: LOSARTAN POTASSIUM 50 MG TABLET PO SCH (10:00)
[2018-02-06] MEDS ORDERED: METFORMIN HCL 500 MG TABLET PO SCH ×2 (10:00)
[2018-02-06] MEDS ORDERED: NITROGLYCERIN 10 MG (0.4 MG/HR) PATCH.TD24 TD SCH (10:00)
== END 2018-02-05 12:06 | disposition home or self-care (01) ==
LOC: ER 10:04 → EH 14:06 → 5 15:48
PROVIDERS: ADMIT Internal Medicine; ATTEND Internal Medicine
DX: G93.40 Encephalopathy, unspecified (principal); E11.9 Type 2 diabetes mellitus without complications; R78.1 Finding of opiate drug in blood; I10 Essential (primary) hypertension; Z79.899 Other long term (current) drug therapy; Z79.84 Long term (current) use of oral hypoglycemic drugs; Z79.02 Long term (current) use of antithrombotics/antiplatelets; Z87.891 Personal history of nicotine dependence
CPT/HCPCS: 93005; 99285; 96374; 36415; 87040; 87086; 82962 ×2; 83735; 85025; 85610; 85730; 80053; 81001; 84484; 80307; 82803; 83605; 70551; 71045; 70450; 93010; G0378 ×2; J0360